=== PATIENT | female | born 1960 | race Caucasian/White ===

== ENCOUNTER → 2018-06-16 | Outpatient (CLI) | payer MEDICARE, OTHER ==
--- NOTE | 2018-06-16 13:10 | CT ---
EXAMINATION TYPE: CT abdomen pelvis wo/w con DATE OF EXAM: 06/16/2018 COMPARISON: 06/13/2010 HISTORY: Hematuria CT DLP: 1121.9 mGycm CONTRAST: CT scan of the abdomen and pelvis is performed without and with with Oral Contrast and without and wi th IV Contrast, patient injected with 100 mL of Isovue 300. FINDINGS: LUNG BASES-: No visible nodule. No infiltrate. LIVER/GB: No calcified gallstones. Mild fatty hepatic infiltration seen. No space occupying hepati c lesion. Biliary tree is of normal caliber. PANCREAS: No inflammation. No distinct mass. SPLEEN: No splenic enlargement. No lesion seen. ADRENALS: No nodule. No thickening. KIDNEYS/BLADDER: No hydronephrosis. 7 mm calculus lower pole left kidney without obstruction. No dis tinct renal mass. Urinary bladder grossly unremarkable. BOWEL: Normal appendix. Normal bowel caliber. No inflammation. GENITAL ORGANS: No gross abnormality. LYMPH NODES: No greater than 1cm abdominal or pelvic lymph nodes are appreciated. AORTA: No significant abnormality. OSSEOUS STRUCTURES: Severe degenerative change lumbar spine. OTHER: No significant additional abnorm ality is seen. IMPRESSION: 1. Nonobstructing left-sided nephrolithiasis.
== END | disposition home or self-care (01) ==
LOC: RADCTMAIN 09:51
PROVIDERS: ATTEND Family Medicine
DX: N20.0 Calculus of kidney (principal)
CPT/HCPCS: 74178; Q9967

== ENCOUNTER → 2018-07-08 | Outpatient (CLI) | payer MEDICARE, OTHER ==
--- NOTE | 2018-07-13 11:28 | MM ---
Reason for exam: screening (asymptomatic). Last mammogram was performed 3 years and 4 months ago. History: Patient is postmenopausal. Physical Findings: A clinical breast exam by your physician is recommended on an annual basis and results should be correlated with mammographic findings. MG 3D Screening Mammo W/Cad Bilateral CC and MLO view(s) were taken. Prior study comparison: March 02, 2015, right breast MG work up mamm w CAD RT. February 27, 2015, bilateral MG screening mammo w CAD. There are scattered fibroglandular densities. No suspicious abnormality. No significant changes when compared with prior studies. ASSESSMENT: Negative, BI-RAD 1 RECOMMENDATION: Routine screening mammogram of both breasts in 1 year.
== END | disposition home or self-care (01) ==
LOC: RADMAMWWP 11:16
PROVIDERS: ATTEND Family Medicine
DX: Z12.31 Encounter for screening mammogram for malignant neoplasm of breast (principal)
CPT/HCPCS: 77063; 77067

== ENCOUNTER 2018-11-19 16:44 | Emergency (ER) | payer MEDICARE, OTHER ==
[2018-11-19 17:47] VITALS: BP 122/86; PULSE 72; RESP 18; TEMP 98.6
[2018-11-19] MEDS ORDERED: SODIUM CHLORIDE 0.9% 1,000 ML IV STA ×2 (18:30→18:32)
[2018-11-19] MEDS ORDERED: ONDANSETRON 4 MG/2 ML VIAL IVP STA (18:30)
[2018-11-19] MEDS ORDERED: MORPHINE SULFATE 4 MG/ML SYRINGE IV STA (18:30)
--- NOTE | 2018-11-19 18:36 | ED ---
General Adult HPI - General Chief complaint: Urogenital Stated complaint: kidney stone, left side Time Seen by Provider: 11/19/18 18:24 Source: patient, RN notes reviewed Mode of arrival: ambulatory Limitations: no limitations - History of Present Illness Initial comments: patient 58-year-old female presented to the emergency room today with a chief complaint of left-sided flank pain. Patient does admit that she's been following up with family doctors told that she had a kidney stone. States that they have seen her move on x-ray. States that she was told approximately 7 mm. Patient states she's had increased pain today. Does admit does not attend pain located in the left flank. Patient does admit to nausea. Denies any other complaints. Patient denies any history of kidney stones in the past. Patient denies any recent fever, chills, shortness of breath, chest pain, numbness or tingling, dysuria or hematuria, constipation or diarrhea, headaches or visual changes, or any other complaints. - Related Data Home Medications Medication Instructions Recorded Confirmed Aspirin 325 mg PO QAM 04/28/14 11/19/18 DULoxetine HCL [Cymbalta] 60 mg PO BID 04/28/14 11/19/18 Multivitamins, Thera [Multivitamin] 1 tab PO DAILY 04/28/14 11/19/18 Nitroglycerin Sl Tabs [Nitrostat] 0.4 mg PO DIRECTED PRN 04/28/14 11/19/18 SUMAtriptan SUCCINATE [Imitrex] 6 mg SQ DAILY PRN 04/28/14 11/19/18 ARIPiprazole [Abilify] 20 mg PO QAM 03/15/16 11/19/18 clonazePAM [KlonoPIN] 0.5 mg PO TID PRN 03/15/16 11/19/18 clonazePAM [KlonoPIN] 2 mg PO HS 03/15/16 11/19/18 Albuterol Inhaler [Ventolin Hfa 2 puff INHALATION RT-Q6H PRN 11/19/18 11/19/18 Inhaler] Albuterol Nebulized [Ventolin 2.5 mg INHALATION RT-Q6H PRN 11/19/18 11/19/18 Nebulized] Aspirin/Acetaminophen/Caffeine 1 tab PO DAILY PRN 11/19/18 11/19/18 [Excedrin Extra Strength Caplet] Fluticasone/Vilanterol [Breo 1 puff INHALATION RT-DAILY 11/19/18 11/19/18 Ellipta 100-25 Mcg Inhaler] traZODone HCL [Desyrel] 200 mg PO HS 11/19/18 11/19/18 Previous Rx's Medication Instructions Recorded Ibuprofen [Motrin] 600 mg PO Q6HR PRN #40 day 11/19/18 Tamsulosin [Flomax] 0.4 mg PO DAILY #10 cap 11/19/18 Allergies Allergy/AdvReac Type Severity Reaction Status Date / Time amoxicillin [From Augmentin] AdvReac Nausea & Verified 11/19/18 19:35 Vomiting & Diarrhea clavulanic acid AdvReac Nausea & Verified 11/19/18 19:35 [From Augmentin] Vomiting & Diarrhea Review of Systems ROS Statement: Those systems with pertinent positive or pertinent negative responses have been documented in the HPI. ROS Other: All systems not noted in ROS Statement are negative. Past Medical History Past Medical History: Asthma, Chest Pain / Angina, Hyperlipidemia, Osteoarthritis (OA) Additional Past Medical History / Comment(s): HYPOTENSION, STATES LEAKY HEART VALVE AND A HOLE BETWEEN HEART CHAMBERS, History of Any Multi-Drug Resistant Organisms: None Reported Past Surgical History: Back Surgery, Orthopedic Surgery Additional Past Surgical History / Comment(s): CERVICAL FUSION. RIGHT SHOULDER ROTATOR CUFF SURGERY, PAIN CLINIC PROCEDURES. Past Anesthesia/Blood Transfusion Reactions: No Reported Reaction Additional Past Anesthesia/Blood Transfusion Reaction / Comment(s): UNKNOWN FAMILY HX. Past Psychological History: Anxiety, Depression, Panic Disorder Smoking Status: Former smoker Past Alcohol Use History: Occasional Past Drug Use History: None Reported - Past Family History Father Family Medical History: Cancer Additional Family Medical History / Comment(s): LUNG CANCER. Mother Family Medical History: Unable to Obtain General Exam - General Exam Comments Initial Comments: General: The patient is awake and alert, in no distress, and does not appear acutely ill. Eye: There is normal conjunctiva bilaterally. No signs of icterus. Ears, nose, mouth and throat: There are moist mucous membranes and no oral lesions. Neck: The neck is supple, there is no tenderness or JVD. Cardiovascular: There is a regular rate and rhythm. No murmur, rub or gallop is appreciated. Respiratory: Lungs are clear to auscultation, respirations are non-labored, breath sounds are equal. No wheezes, stridor, rales, or rhonchi. Gastrointestinal: abdomen soft on palpation. Patient does have mild tenderness left flank. No rebound, guarding Musculoskeletal: Normal ROM, no tenderness. Neurological: A&O x 3. CN II-XII intact, There are no obvious motor or sensory deficits. Coordination appears grossly intact. Speech is normal. Skin: Skin is warm and dry and no rashes or lesions are noted. Psychiatric: Cooperative, appropriate mood & affect, normal judgment. Limitations: no limitations Course Vital Signs 11/19/18 17:44 Temperature 98.6 F Pulse Rate 72 Respiratory 18 Rate Blood Pressure 122/86 O2 Sat by Pulse 99 Oximetry Medical Decision Making - Medical Decision Making patient's CT of the abdomen and pelvis reviewed. Patient's urinalysis does show moderate amount of blood. No sign of infection. Patient resting comfortable. Pain-free at this time. Will be discharged home on anti- inflammatories, Flomax. Advised follow family doctor in the next 2 days. Advised return for any other concerns. - Lab Data Result diagrams: 11/19/18 18:39 11/19/18 18:39 Lab Results 11/19/18 11/19/18 11/19/18 Range/Units 18:39 18:39 18:39 WBC 8.8 (3.8-10.6) k/uL RBC 4.72 (3.80-5.40) m/uL Hgb 14.9 (11.4-16.0) gm/dL Hct 44.2 (34.0-46.0) % MCV 93.8 (80.0-100.0) fL MCH 31.5 (25.0-35.0) pg MCHC 33.6 (31.0-37.0) g/dL RDW 12.8 (11.5-15.5) % Plt Count 317 (150-450) k/uL Neutrophils % 54 % Lymphocytes % 34 % Monocytes % 6 % Eosinophils % 2 % Basophils % 1 % Neutrophils # 4.8 (1.3-7.7) k/uL Lymphocytes # 3.0 (1.0-4.8) k/uL Monocytes # 0.5 (0-1.0) k/uL Eosinophils # 0.2 (0-0.7) k/uL Basophils # 0.1 (0-0.2) k/uL Sodium 139 (137-145) mmol/L Potassium 5.0 (3.5-5.1) mmol/L Chloride 104 (98-107) mmol/L Carbon Dioxide 29 (22-30) mmol/L Anion Gap 6 mmol/L BUN 23 H (7-17) mg/dL Creatinine 0.76 (0.52-1.04) mg/dL Est GFR (CKD-EPI)AfAm >90 (>60 ml/min/1.73 sqM) Est GFR (CKD-EPI)NonAf 87 (>60 ml/min/1.73 sqM) Glucose 88 (74-99) mg/dL Calcium 9.7 (8.4-10.2) mg/dL Total Bilirubin 0.5 (0.2-1.3) mg/dL AST 29 (14-36) U/L ALT 26 (9-52) U/L Alkaline Phosphatase 77 (38-126) U/L Total Protein 7.2 (6.3-8.2) g/dL Albumin 4.2 (3.5-5.0) g/dL Amylase 97 (30-110) U/L Lipase 227 (23-300) U/L Urine Color Yellow Urine Appearance Clear (Clear) Urine pH 6.0 (5.0-8.0) Ur Specific [place] 1.025 (1.001-1.035) Urine Protein 1+ H (Negative) Urine Glucose (UA) Negative (Negative) Urine Ketones Negative (Negative) Urine Blood Trace H (Negative) Urine Nitrite Negative (Negative) Urine Bilirubin Negative (Negative) Urine Urobilinogen <2.0 (<2.0) mg/dL Ur Leukocyte Esterase Moderate H (Negative) Urine RBC 110 H (0-5) /hpf Ur Squamous Epith Cells <1 (0-4) /hpf Hyaline Casts 1 (0-2) /lpf Urine Mucus Occasional H (None) /hpf Disposition Clinical Impression: Flank pain Disposition: HOME SELF-CARE Condition: Good Instructions: Kidney Stones (ED) Additional Instructions: Please use medication as discussed. Please follow-up with family doctor in the next 2 days of symptoms have not improved. Please return to emergency room if the symptoms increase or worsen or for any other concerns. Prescriptions: Ibuprofen [Motrin] 600 mg PO Q6HR PRN #40 day PRN Reason: Pain Tamsulosin [Flomax] 0.4 mg PO DAILY #10 cap Is patient prescribed a controlled substance at d/c from ED?: No Referrals: Vishnu Tesfaye DO [Primary Care Provider] - 1-2 days Time of Disposition: 19:48
[2018-11-19 19:03] LABS: Basophils # (A) 0.1 k/uL (0-0.2); Basophils % (A) 1 %; Eosinophils # (A) 0.2 k/uL (0-0.7); Eosinophils % (A) 2 %; HCT 44.2 % (34.0-46.0); HGB 14.9 gm/dL (11.4-16.0); Lymphocytes % (A) 34 %; MCH 31.5 pg (25.0-35.0); MCHC 33.6 g/dL (31.0-37.0); MCV 93.8 fL (80.0-100.0); Mean Platelet Volume 6.8; Monocytes # (A) 0.5 k/uL (0-1.0); Monocytes % (A) 6 %; Neutrophils # (A) 4.8 k/uL (1.3-7.7); Neutrophils % (A) 54 %; Platelet Count 317 k/uL (150-450); RBC 4.72 m/uL (3.80-5.40); RDW 12.8 % (11.5-15.5); WBC 8.8 k/uL (3.8-10.6)
[2018-11-19 19:07] LABS: Appearance,Urine Clear (Clear); Bilirubin,Urine Negative (Negative); Blood,Urine Trace (Negative); Color,Urine Yellow; Glucose,Urine (UA) Negative (Negative); Hyaline Casts,Urine 1 /lpf (0-2); Ketones,Urine Negative (Negative); Leukocyte Esterase,Urine Moderate (Negative); Mucus,Urine Occasional /hpf; Nitrite,Urine Negative (Negative); Protein,Urine 1+ (Negative); RBC,Urine 110 /hpf (0-5); Specific Gravity,Urine 1.025 (1.001-1.035); Squamous Epithelial Cell,Urine <1 /hpf (0-4); Urobilinogen,Urine <2.0 mg/dL (<2.0)
[2018-11-19 19:13] LABS: ALT 26 U/L (9-52); AST 29 U/L (14-36); Albumin 4.2 g/dL (3.5-5.0); Alkaline Phosphatase 77 U/L (38-126); Amylase 97 U/L (30-110); Anion Gap 6 mmol/L; Blood Urea Nitrogen 23 mg/dL (7-17); Calcium 9.7 mg/dL (8.4-10.2); Carbon Dioxide 29 mmol/L (22-30); Chloride 104 mmol/L (98-107); Glucose 88 mg/dL (74-99); Lipase 227 U/L (23-300); Sodium 139 mmol/L (137-145); Total Bilirubin 0.5 mg/dL (0.2-1.3); Total Protein 7.2 g/dL (6.3-8.2)
[2018-11-19] MEDS ORDERED: LORazepam 2 MG/ML INJ IV STA (19:19)
[2018-11-19] MEDS ORDERED: KETOROLAC 30 MG/ML 1 ML VIAL IVP STA (19:19)
[2018-11-19] MEDS ORDERED: FAMOTIDINE 20 MG/2 ML VIAL IV STA (19:19)
--- NOTE | 2018-11-19 19:30 | CT ---
EXAMINATION TYPE: CT abdomen pelvis wo con DATE OF EXAM: 11/19/2018 COMPARISON: 06/16/2018 HISTORY: Left side flank pain. CT DLP: 356.9 mGycm Automated exposure control for dose reduction was used. TECHNIQUE: Helical acquisition of images was performed from the lung bases through the pelvis. FINDINGS: Lung bases are clear. There is no pleural effusion. Heart size is normal. There is no pericardial eff usion. There is interposition of the hepatic flexure of the colon which is a normal variant. Liver spleen appear normal. Bile ducts are not dilated. Gallbladder appears normal. There is no evide nce of a pancreatic mass. Abdominal aorta is atheromatous. There is no adrenal mass. There is 1 cm ca lculus interpolar left kidney. There is no hydronephrosis. There is no free fluid in the pelvis. Bladder is empty. There are numerous phleboliths in the pelvis. There is no inguinal hernia. I see no retroperitoneal adenopathy. There is no ascites. There is no sign of a bowel obstruction. Th ere is no mesenteric edema. There is no evidence of free air. There are spondylotic changes in the courtney mbar spine. I see no bony destructive process. There is degenerative disc space narrowing and vacuum disc. Bony pelvis is intact. IMPRESSION: NONOBSTRUCTING LARGE LEFT RENAL CALCULUS UNCHANGED. NO EVIDENCE OF RENAL OBSTRUCTION. NO ADVERSE CHAPIN GE COMPARED TO OLD EXAM.
== END 2018-11-19 20:12 | disposition home or self-care (01) ==
LOC: EC 16:44
DX: R10.32 Left lower quadrant pain (principal); R11.0 Nausea; R82.90 Unspecified abnormal findings in urine; J45.909 Unspecified asthma, uncomplicated; F41.9 Anxiety disorder, unspecified; F32.9 Major depressive disorder, single episode, unspecified; Z87.891 Personal history of nicotine dependence; Z79.82 Long term (current) use of aspirin; Z79.51 Long term (current) use of inhaled steroids; Z79.899 Other long term (current) drug therapy; Z88.0 Allergy status to penicillin
CPT/HCPCS: 36415; 80053; 82150; 83690; 85025; 81001; 87086; 74176; 99284; 96374; 96375; 96361; J2270; J2405

== ENCOUNTER → 2019-03-22 | Outpatient (CLI) | payer MEDICARE, OTHER ==
--- NOTE | 2019-03-22 13:19 | XR ---
EXAMINATION TYPE: XR KUB DATE OF EXAM: 03/22/2019 COMPARISON: NONE HISTORY: Pain TECHNIQUE: One view abdominal series FINDINGS: The osseous structures are intact. The bowel gas pattern is nonspecific. Scoliosis and severe degene rative disc disease noted. There is a calcification the left upper quadrant measuring 7 mm likely the basis of a renal calculus. No suspicious calculi overlying the right kidney a low there is significa nt bowel content overlying the region. Calcifications the pelvis are nonspecific but likely vascular. Arthropathy of the hip joints. IMPRESSION: 1. 7 mm calcification within the left kidney likely within the renal pelvis may have migrated central ly since the previous CT scan of 11/19/2018 where it appear to be within a lower pole calyx.
== END | disposition home or self-care (01) ==
LOC: RADXRMAIN 12:13
PROVIDERS: ATTEND Urology
DX: N28.89 Other specified disorders of kidney and ureter (principal)
CPT/HCPCS: 74018

== ENCOUNTER 2019-04-15 18:05 | Observation (INO) | payer MEDICARE, OTHER ==
[2019-04-15] MEDS ORDERED: ONDANSETRON 4 MG/2 ML VIAL IVP STA (20:00)
[2019-04-15] MEDS ORDERED: SODIUM CHLORIDE 0.9% 1,000 ML IV STA ×3 (20:00→22:48)
--- NOTE | 2019-04-15 20:01 | ED ---
Abdominal Pain HPI - General Chief Complaint: Abdominal Pain Stated Complaint: kidney problems/vomiting Time Seen by Provider: 04/15/19 20:00 Source: patient, RN notes reviewed, old records reviewed Mode of arrival: ambulatory Limitations: no limitations - History of Present Illness Initial Comments: This is a 5-year-old female the ER for evaluation. Patient is today for evaluation of abdominal pain epigastric abdominal pain with nausea no vomiting. No fevers. No diarrhea. No history of surgical illness. No prior history of pancreatitis, no prior history of kidney stones. No prior history of similar pain MD Complaint: abdominal pain -: days(s) Location: diffuse, periumbilical, epigastric Radiation: epigastric Migration to: bilateral flank Severity: moderate Severity scale (1-10): 5 Quality: stabbing, aching Consistency: intermittent Improves With: nothing Associated Symptoms: nausea, vomiting - Related Data Home Medications Medication Instructions Recorded Confirmed Nitroglycerin Sl Tabs [Nitrostat] 0.4 mg PO DIRECTED PRN 04/28/14 04/15/19 clonazePAM [KlonoPIN] 2 mg PO HS 03/15/16 04/15/19 Albuterol Inhaler [Ventolin Hfa 2 puff INHALATION RT-Q6H PRN 11/19/18 04/15/19 Inhaler] Fluticasone/Vilanterol [Breo 1 puff INHALATION RT-DAILY 11/19/18 04/15/19 Ellipta 100-25 Mcg Inhaler] DULoxetine HCL [Cymbalta] 60 mg PO BID 04/15/19 04/15/19 clonazePAM [KlonoPIN] 1 mg PO DAILY 04/15/19 04/15/19 traZODone HCL 150 mg PO HS 04/15/19 04/15/19 SUMAtriptan SUCCINATE [Imitrex] 6 mg SQ Q8HR PRN 04/16/19 04/16/19 Previous Rx's Medication Instructions Recorded Pantoprazole Sodium [Protonix] 20 mg PO BID #30 tablet. 04/16/19 Polyethylene Glycol 3350 [Miralax] 17 gm PO DAILY PRN #15 packet 04/16/19 Allergies Allergy/AdvReac Type Severity Reaction Status Date / Time amoxicillin [From Augmentin] AdvReac Nausea & Verified 04/15/19 20:36 Vomiting & Diarrhea clavulanic acid AdvReac Nausea & Verified 04/15/19 20:36 [From Augmentin] Vomiting & Diarrhea Review of Systems ROS Statement: Those systems with pertinent positive or pertinent negative responses have been documented in the HPI. ROS Other: All systems not noted in ROS Statement are negative. 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 ridney stones History of Any Multi-Drug Resistant Organisms: None Reported Past Surgical History: Back Surgery, Orthopedic Surgery Additional Past Surgical History / Comment(s): CERVICAL FUSION. RIGHT SHOULDER ROTATOR CUFF SURGERY, PAIN CLINIC PROCEDURES. Past Anesthesia/Blood Transfusion Reactions: No Reported Reaction Additional Past Anesthesia/Blood Transfusion Reaction / Comment(s): UNKNOWN FAMILY HX. Past Psychological History: Anxiety, Depression, Panic Disorder Smoking Status: Former smoker Past Alcohol Use History: Occasional Past Drug Use History: None Reported - Past Family History Father Family Medical History: Cancer Additional Family Medical History / Comment(s): LUNG CANCER. Mother Family Medical History: Unable to Obtain General Exam Limitations: no limitations General appearance: alert, in no apparent distress Head exam: Present: atraumatic, normocephalic, normal inspection Eye exam: Present: normal appearance, PERRL, EOMI. Absent: scleral icterus, conjunctival injection, periorbital swelling ENT exam: Present: normal exam, mucous membranes moist Neck exam: Present: normal inspection. Absent: tenderness, meningismus, lymphadenopathy Respiratory exam: Present: normal lung sounds bilaterally. Absent: respiratory distress, wheezes, rales, rhonchi, stridor Cardiovascular Exam: Present: regular rate, normal rhythm, normal heart sounds. Absent: systolic murmur, diastolic murmur, rubs, gallop, clicks GI/Abdominal exam: Present: soft, tenderness (Epigastric), normal bowel sounds. Absent: distended, guarding, rebound, rigid Extremities exam: Present: normal inspection, full ROM, normal capillary refill. Absent: tenderness, pedal edema, joint swelling, calf tenderness Back exam: Present: normal inspection Neurological exam: Present: alert, oriented X3, CN II-XII intact Psychiatric exam: Present: normal affect, normal mood Skin exam: Present: warm, dry, intact, normal color. Absent: rash Course Vital Signs 04/15/19 04/15/19 04/15/19 18:15 20:19 20:20 Temperature 97.8 F Pulse Rate 78 Pulse Rate [ Pulse Oximetery ] Respiratory 20 Rate Blood Pressure 107/73 114/74 Blood Pressure [Right Arm] O2 Sat by Pulse 96 97 97 Oximetry 04/15/19 04/15/19 04/15/19 20:30 20:40 20:50 Temperature Pulse Rate Pulse Rate [ Pulse Oximetery ] Respiratory Rate Blood Pressure 114/74 114/74 114/74 Blood Pressure [Right Arm] O2 Sat by Pulse 95 88 L 96 Oximetry 04/15/19 04/15/19 04/15/19 21:00 21:10 21:20 Temperature Pulse Rate Pulse Rate [ Pulse Oximetery ] Respiratory Rate Blood Pressure 114/74 114/74 114/74 Blood Pressure [Right Arm] O2 Sat by Pulse 97 96 Oximetry 04/15/19 04/15/19 04/15/19 21:30 21:40 21:50 Temperature Pulse Rate Pulse Rate [ Pulse Oximetery ] Respiratory Rate Blood Pressure 114/74 114/74 114/74 Blood Pressure [Right Arm] O2 Sat by Pulse 95 95 96 Oximetry 04/15/19 04/15/19 04/16/19 23:07 23:10 00:00 Temperature 98.0 F 97.6 F Pulse Rate 67 Pulse Rate [ 68 Pulse Oximetery ] Respiratory 18 18 18 Rate Blood Pressure 125/82 Blood Pressure 111/73 [Right Arm] O2 Sat by Pulse 95 95 Oximetry Medical Decision Making - Medical Decision Making 59 female the ER for evaluation of abdominal pain, patient's found to have pancreatitis and dehydration. Will not for rehydration pain and symptom control. - Lab Data Result diagrams: 04/15/19 20:00 04/15/19 20:00 Lab Results 04/15/19 04/15/19 04/15/19 Range/Units 20:00 20:00 20:00 WBC 6.6 (3.8-10.6) k/uL RBC 5.08 (3.80-5.40) m/uL Hgb 15.5 (11.4-16.0) gm/dL Hct 47.7 H (34.0-46.0) % MCV 93.9 (80.0-100.0) fL MCH 30.5 (25.0-35.0) pg MCHC 32.5 (31.0-37.0) g/dL RDW 14.4 (11.5-15.5) % Plt Count 371 (150-450) k/uL Neutrophils % 45 % Lymphocytes % 39 % Monocytes % 9 % Eosinophils % 3 % Basophils % 1 % Neutrophils # 3.0 (1.3-7.7) k/uL Lymphocytes # 2.6 (1.0-4.8) k/uL Monocytes # 0.6 (0-1.0) k/uL Eosinophils # 0.2 (0-0.7) k/uL Basophils # 0.1 (0-0.2) k/uL Sodium 137 (137-145) mmol/L Potassium 4.0 (3.5-5.1) mmol/L Chloride 101 (98-107) mmol/L Carbon Dioxide 29 (22-30) mmol/L Anion Gap 7 mmol/L BUN 11 (7-17) mg/dL Creatinine 0.68 (0.52-1.04) mg/dL Est GFR (CKD-EPI)AfAm >90 (>60 ml/min/1.73 sqM) Est GFR (CKD-EPI)NonAf >90 (>60 ml/min/1.73 sqM) Glucose 59 L (74-99) mg/dL Plasma Lactic Acid [place] 1.2 (0.7-2.0) mmol/L Calcium 10.0 (8.4-10.2) mg/dL Total Bilirubin 0.4 (0.2-1.3) mg/dL AST 34 (14-36) U/L ALT 9 (9-52) U/L Alkaline Phosphatase 77 (38-126) U/L Total Protein 8.2 (6.3-8.2) g/dL Albumin 4.7 (3.5-5.0) g/dL Amylase 123 H (30-110) U/L Lipase 467 H (23-300) U/L Urine Color Urine Appearance (Clear) Urine pH (5.0-8.0) Ur Specific [place] (1.001-1.035) Urine Protein (Negative) Urine Glucose (UA) (Negative) Urine Ketones (Negative) Urine Blood (Negative) Urine Nitrite (Negative) Urine Bilirubin (Negative) Urine Urobilinogen (<2.0) mg/dL Ur Leukocyte Esterase (Negative) Urine RBC (0-5) /hpf Urine WBC (0-5) /hpf Amorphous Sediment (None) /hpf Urine Mucus (None) /hpf 04/15/19 Range/Units 20:00 WBC (3.8-10.6) k/uL RBC (3.80-5.40) m/uL Hgb (11.4-16.0) gm/dL Hct (34.0-46.0) % MCV (80.0-100.0) fL MCH (25.0-35.0) pg MCHC (31.0-37.0) g/dL RDW (11.5-15.5) % Plt Count (150-450) k/uL Neutrophils % % Lymphocytes % % Monocytes % % Eosinophils % % Basophils % % Neutrophils # (1.3-7.7) k/uL Lymphocytes # (1.0-4.8) k/uL Monocytes # (0-1.0) k/uL Eosinophils # (0-0.7) k/uL Basophils # (0-0.2) k/uL Sodium (137-145) mmol/L Potassium (3.5-5.1) mmol/L Chloride (98-107) mmol/L Carbon Dioxide (22-30) mmol/L Anion Gap mmol/L BUN (7-17) mg/dL Creatinine (0.52-1.04) mg/dL Est GFR (CKD-EPI)AfAm (>60 ml/min/1.73 sqM) Est GFR (CKD-EPI)NonAf (>60 ml/min/1.73 sqM) Glucose (74-99) mg/dL Plasma Lactic Acid Thomas (0.7-2.0) mmol/L Calcium (8.4-10.2) mg/dL Total Bilirubin (0.2-1.3) mg/dL AST (14-36) U/L ALT (9-52) U/L Alkaline Phosphatase (38-126) U/L Total Protein (6.3-8.2) g/dL Albumin (3.5-5.0) g/dL Amylase (30-110) U/L Lipase (23-300) U/L Urine Color Yellow Urine Appearance Cloudy H (Clear) Urine pH 7.5 (5.0-8.0) Ur Specific [place] 1.023 (1.001-1.035) Urine Protein Trace H (Negative) Urine Glucose (UA) Negative (Negative) Urine Ketones Negative (Negative) Urine Blood Negative (Negative) Urine Nitrite Negative (Negative) Urine Bilirubin Negative (Negative) Urine Urobilinogen 3.0 (<2.0) mg/dL Ur Leukocyte Esterase Negative (Negative) Urine RBC 10 H (0-5) /hpf Urine WBC 3 (0-5) /hpf Amorphous Sediment Rare H (None) /hpf Urine Mucus Rare H (None) /hpf - Radiology Data Radiology results: report reviewed (CT head and pelvis is negative for acute disease), image reviewed Disposition Clinical Impression: Abdominal pain, Pancreatitis Disposition: ADMITTED IP TO THIS HOSP Condition: Fair Is patient prescribed a controlled substance at d/c from ED?: No
[2019-04-15 20:33] LABS: Basophils # (A) 0.1 k/uL (0-0.2); Basophils % (A) 1 %; Eosinophils # (A) 0.2 k/uL (0-0.7); Eosinophils % (A) 3 %; HCT 47.7 % (34.0-46.0); HGB 15.5 gm/dL (11.4-16.0); Lymphocytes # (A) 2.6 k/uL (1.0-4.8); Lymphocytes % (A) 39 %; MCH 30.5 pg (25.0-35.0); MCHC 32.5 g/dL (31.0-37.0); MCV 93.9 fL (80.0-100.0); Mean Platelet Volume 7.3; Monocytes # (A) 0.6 k/uL (0-1.0); Monocytes % (A) 9 %; Neutrophils % (A) 45 %; Platelet Count 371 k/uL (150-450); RBC 5.08 m/uL (3.80-5.40); RDW 14.4 % (11.5-15.5); WBC 6.6 k/uL (3.8-10.6)
[2019-04-15 20:41] LABS: Amorphous Sediment,Urine Rare /hpf; Appearance,Urine Cloudy (Clear); Bilirubin,Urine Negative (Negative); Blood,Urine Negative (Negative); Color,Urine Yellow; Glucose,Urine (UA) Negative (Negative); Ketones,Urine Negative (Negative); Leukocyte Esterase,Urine Negative (Negative); Mucus,Urine Rare /hpf; Nitrite,Urine Negative (Negative); PH, Urine 7.5 (5.0-8.0); Protein,Urine Trace (Negative); RBC,Urine 10 /hpf (0-5); Specific Gravity,Urine 1.023 (1.001-1.035); WBC,Urine 3 /hpf (0-5)
[2019-04-15 20:50] LABS: ALT 9 U/L (9-52); AST 34 U/L (14-36); Albumin 4.7 g/dL (3.5-5.0); Alkaline Phosphatase 77 U/L (38-126); Amylase 123 U/L (30-110); Anion Gap 7 mmol/L; Blood Urea Nitrogen 11 mg/dL (7-17); Carbon Dioxide 29 mmol/L (22-30); Chloride 101 mmol/L (98-107); Glucose 59 mg/dL (74-99); Lipase 467 U/L (23-300); Sodium 137 mmol/L (137-145); Total Bilirubin 0.4 mg/dL (0.2-1.3); Total Protein 8.2 g/dL (6.3-8.2)
--- NOTE | 2019-04-15 22:05 | CT ---
EXAMINATION TYPE: CT abdomen pelvis w con DATE OF EXAM: 04/15/2019 COMPARISON: 11/19/2018 HISTORY: Left side flank pain and vomiting. CT DLP: 536.8 mGycm Automated exposure control for dose reduction was used. TECHNIQUE: Helical acquisition of images was performed from the lung bases through the pelvis. CONTRAST: Performed without Oral Contrast and with IV Contrast, patient injected with 100ml mL of Iso [place] 300. FINDINGS: The patient is thin and there is crowding of structures throughout the abdomen and pelvis, along with unopacified small and large bowel loops. This makes for difficult visualization. Nonethele ss, the following observations are made: LUNG BASES: No acute process. A moderate cardiomegaly noted. LIVER/GB: No significant abnormality is appreciated. PANCREAS: No significant abnormality is seen. SPLEEN: No significant abnormality is seen. ADRENALS: No significant abnormality is seen. KIDNEYS: No acute findings. The 1 cm left renal pelvis calcification is redemonstrated. PERITONEAL CAVITY: No free air is visualized. No peritoneal fluid. ABDOMINAL ADENOPATHY: None. REPRODUCTIVE ORGANS: No significant abnormality is seen URINARY BLADDER: No significant abnormality is seen. PELVIC ADENOPATHY: None visualized. OSSEOUS STRUCTURES: No acute findings. BOWEL: Stomach and duodenum are collapsed. There is no small bowel obstruction. However, a large vol ume of stool seen throughout the colon which is prominently redundant. There is colonic stool volume is seen throughout the colon and including the rectosigmoid. OTHER: No acute vascular findings. IMPRESSION: CONSTIPATION.
[2019-04-15] MEDS ORDERED: MORPHINE SULFATE 4 MG/ML SYRINGE IVP PRN (22:48)
[2019-04-15] MEDS ORDERED: MORPHINE SULFATE 4 MG/ML SYRINGE IVP STA (22:48)
[2019-04-15] MEDS ORDERED: ONDANSETRON 4 MG/2 ML VIAL IVP PRN (22:48)
[2019-04-16 00:14] VITALS: BMI 19.6
[2019-04-16] MEDS ORDERED: traZODone HCL 50 MG TAB PO SCH (00:45)
[2019-04-16] MEDS: DULoxetine HCL 60 MG CAPSULE.DR PO SCH ×2 (02:24→11:53)
[2019-04-16 07:44] VITALS: BP 118/76; PULSE 67; RESP 16; TEMP 98.1
[2019-04-16] MEDS ORDERED: PANTOPRAZOLE 40 MG/10 ML VIAL IVP SCH (09:00)
[2019-04-16] MEDS ORDERED: ALBUTEROL NEBULIZED 2.5 MG/3 ML INHALATION PRN (11:58)
[2019-04-16] MEDS ORDERED: NITROGLYCERIN SL TABS 0.4 MG TAB SUBLINGUAL PRN (11:58)
[2019-04-16] MEDS ORDERED: SENNOSIDES 8.6 MG TAB PO PRN (12:00)
[2019-04-16] MEDS ORDERED: POLYETHYLENE GLYCOL 3350 17 GM POWD.PACK PO PRN (12:00)
--- NOTE | 2019-04-16 14:44 | P.HPIM ---
History of Present Illness 5-year-old female came in with left lower quadrant abdominal pain which is a moderate in severity crampy in nature. Patient is found to have constipation. Patient has mildly elevated the lipase because of which he does believe patient has back hepatitis although patient does not have any symptoms consistent with pancreatitis and lipase is not high enough to say pancreatitis and do not believe patient has pancreatitis. Patient is feeling better today although did not move her bowel patient does have good bowel sounds patient was started on as needed MiraLAX and will be discharged home. Patient's abdominal pain significant improved. Review of Systems REVIEW OF SYSTEMS: CONSTITUTIONAL: No fever, no malaise, no fatigue. HEENT: No recent visual problems or hearing problems. Denied any sore throat. CARDIOVASCULAR: No chest pain, orthopnea, PND, no palpitations, no syncope. PULMONARY: No shortness of breath, no cough, no hemoptysis. GASTROINTESTINAL: No diarrhea, no nausea, no vomiting. NEUROLOGICAL: No headaches, no weakness, no numbness. HEMATOLOGICAL: Denies any bleeding or petechiae. GENITOURINARY: Denies any burning micturition, frequency, or urgency. MUSCULOSKELETAL/RHEUMATOLOGICAL: Denies any joint pain, swelling, or any muscle pain. ENDOCRINE: Denies any polyuria or polydipsia. The rest of the 14-point review of systems is negative. 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 KIdney stones History of Any Multi-Drug Resistant Organisms: None Reported Past Surgical History: Back Surgery, Orthopedic Surgery Additional Past Surgical History / Comment(s): CERVICAL FUSION. RIGHT SHOULDER ROTATOR CUFF SURGERY, PAIN CLINIC PROCEDURES. Past Anesthesia/Blood Transfusion Reactions: No Reported Reaction Additional Past Anesthesia/Blood Transfusion Reaction / Comment(s): UNKNOWN FAMILY HX. Past Psychological History: Anxiety, Depression, Panic Disorder Additional Psychological History / Comment(s): STATES 3 MONTHS AGO. Smoking Status: Current every day smoker Past Alcohol Use History: Occasional Additional Past Alcohol Use History / Comment(s): STARTED SMOKING AT AGE 40 SMOKED 2PPD DOWN TO 1PPD Past Drug Use History: None Reported - Past Family History Father Family Medical History: Cancer Additional Family Medical History / Comment(s): LUNG CANCER. Mother Family Medical History: Unable to Obtain Medications and Allergies Home Medications Medication Instructions Recorded Confirmed Type Nitroglycerin Sl Tabs [Nitrostat] 0.4 mg PO DIRECTED PRN 04/28/14 04/15/19 History clonazePAM [KlonoPIN] 2 mg PO HS 03/15/16 04/15/19 History Albuterol Inhaler [Ventolin Hfa 2 puff INHALATION RT-Q6H PRN 11/19/18 04/15/19 History Inhaler] Fluticasone/Vilanterol [Breo 1 puff INHALATION RT-DAILY 11/19/18 04/15/19 History Ellipta 100-25 Mcg Inhaler] DULoxetine HCL [Cymbalta] 60 mg PO BID 04/15/19 04/15/19 History clonazePAM [KlonoPIN] 1 mg PO DAILY 04/15/19 04/15/19 History traZODone HCL 150 mg PO HS 04/15/19 04/15/19 History Pantoprazole Sodium [Protonix] 20 mg PO BID #30 tablet. 04/16/19 Rx Polyethylene Glycol 3350 [Miralax] 17 gm PO DAILY PRN #15 packet 04/16/19 Rx SUMAtriptan SUCCINATE [Imitrex] 6 mg SQ Q8HR PRN 04/16/19 04/16/19 History Allergies Allergy/AdvReac Type Severity Reaction Status Date / Time amoxicillin [From Augmentin] AdvReac Nausea & Verified 04/15/19 20:36 Vomiting & Diarrhea clavulanic acid AdvReac Nausea & Verified 04/15/19 20:36 [From Augmentin] Vomiting & Diarrhea Physical Exam Vitals: Vital Signs Temp Pulse Pulse Resp BP BP Pulse Ox 04/16/19 07:43 98.1 F 67 16 118/76 94 L 04/16/19 00:00 97.6 F 68 18 111/73 95 04/15/19 23:10 98.0 F 67 18 125/82 95 04/15/19 23:07 18 04/15/19 21:50 114/74 96 04/15/19 21:40 114/74 95 04/15/19 21:30 114/74 95 04/15/19 21:20 114/74 96 04/15/19 21:10 114/74 04/15/19 21:00 114/74 97 04/15/19 20:50 114/74 96 04/15/19 20:40 114/74 88 L 04/15/19 20:30 114/74 95 04/15/19 20:20 114/74 97 04/15/19 20:19 97 04/15/19 18:15 97.8 F 78 20 107/73 96 Intake and Output 04/15/19 04/16/19 04/16/19 22:59 06:59 14:59 Intake Total 1000 298 Balance 1000 298 Intake: Amount of Fluid Infused ( 1000 ml) Oral 298 Other: # Voids 1 Weight 56.699 kg PHYSICAL EXAMINATION: GENERAL: The patient is alert and oriented x3, not in any acute distress. Well developed, well nourished. HEENT: Pupils are round and equally reacting to light. EOMI. No scleral icterus. No conjunctival pallor. Normocephalic, atraumatic. No pharyngeal erythema. No thyromegaly. CARDIOVASCULAR: S1 and S2 present. No murmurs, rubs, or gallops. PULMONARY: Chest is clear to auscultation, no wheezing or crackles. ABDOMEN: Soft, nontender, nondistended, normoactive bowel sounds. No palpable organomegaly. MUSCULOSKELETAL: No joint swelling or deformity. EXTREMITIES: No cyanosis, clubbing, or pedal edema. NEUROLOGICAL: Gross neurological examination did not reveal any focal deficits. SKIN: No rashes. Results CBC & Chem 7: 04/15/19 20:00 04/15/19 20:00 Labs: Abnormal Lab Results - Last 24 Hours (Table) 04/15/19 04/15/19 04/15/19 Range/Units 20:00 20:00 20:00 Hct 47.7 H (34.0-46.0) % Glucose 59 L (74-99) mg/dL Amylase 123 H (30-110) U/L Lipase 467 H (23-300) U/L Urine Appearance Cloudy H (Clear) Urine Protein Trace H (Negative) Urine RBC 10 H (0-5) /hpf Amorphous Sediment Rare H (None) /hpf Urine Mucus Rare H (None) /hpf Microbiology - Last 24 Hours (Table) 04/15/19 20:00 Urine Culture - Preliminary Urine,Voided Thrombosis Risk Factor Assmnt - Choose All That Apply Any of the Below Risk Factors Present?: Yes Each Factor Represents 1 point: Age 41-60 years Other Risk Factors: No Other congenital or acquired thrombophilia - If yes, enter type in comment: No Thrombosis Risk Factor Assessment Total Risk Factor Score: 1 Thrombosis Risk Factor Assessment Level: Low Risk Assessment and Plan Plan: -Abdominal pain: Secondary to constipation and do not believe patient has back hepatitis patient will be discharged today. Patient is feeling better today. -COPD without any acute exacerbation -hyperlipidemia -Depression -" Continued nicotine use: Counseling was provided
--- NOTE | 2019-04-16 14:45 | P.DS ---
Providers Date of admission: 04/15/19 22:48 Attending physician: Jim Douglas Primary care physician: [facility] Course: Please refer to my HPI Patient Condition at Discharge: Fair Plan - Discharge Summary New Discharge Prescriptions: New Pantoprazole Sodium [Protonix] 20 mg PO BID #30 tablet. Polyethylene Glycol 3350 [Miralax] 17 gm PO DAILY PRN #15 packet PRN Reason: Constipation Continue Nitroglycerin Sl Tabs [Nitrostat] 0.4 mg PO DIRECTED PRN PRN Reason: Angina clonazePAM [KlonoPIN] 2 mg PO HS Fluticasone/Vilanterol [Breo Ellipta 100-25 Mcg Inhaler] 1 puff INHALATION RT-DAILY Albuterol Inhaler [Ventolin Hfa Inhaler] 2 puff INHALATION RT-Q6H PRN PRN Reason: Shortness Of Breath DULoxetine HCL [Cymbalta] 60 mg PO BID clonazePAM [KlonoPIN] 1 mg PO DAILY traZODone HCL 150 mg PO HS SUMAtriptan SUCCINATE [Imitrex] 6 mg SQ Q8HR PRN PRN Reason: Headache Discontinued RABEprazole SODIUM [Aciphex] 20 mg PO DAILY Discharge Medication List Nitroglycerin Sl Tabs [Nitrostat] 0.4 mg PO DIRECTED PRN 04/28/14 [History] clonazePAM [KlonoPIN] 2 mg PO HS 03/15/16 [History] Albuterol Inhaler [Ventolin Hfa Inhaler] 2 puff INHALATION RT-Q6H PRN 11/19/18 [History] Fluticasone/Vilanterol [Breo Ellipta 100-25 Mcg Inhaler] 1 puff INHALATION RT- DAILY 11/19/18 [History] DULoxetine HCL [Cymbalta] 60 mg PO BID 04/15/19 [History] clonazePAM [KlonoPIN] 1 mg PO DAILY 04/15/19 [History] traZODone HCL 150 mg PO HS 04/15/19 [History] Pantoprazole Sodium [Protonix] 20 mg PO BID #30 tablet. 04/16/19 [Rx] Polyethylene Glycol 3350 [Miralax] 17 gm PO DAILY PRN #15 packet 04/16/19 [Rx] SUMAtriptan SUCCINATE [Imitrex] 6 mg SQ Q8HR PRN 04/16/19 [History] Follow up Appointment(s)/Referral(s): Vishnu Tesfaye DO [Primary Care Provider] - 3 Days Discharge Disposition: HOME SELF-CARE
[2019-04-16] MEDS ORDERED: SUMAtriptan SUCCINATE 6 MG/0.5 ML VIAL SQ PRN (21:00)
[2019-04-17] MEDS ORDERED: SYMBICORT 80-4.5 MCG INHALER INHALATION SCH (08:00)
== END 2019-04-16 15:44 | disposition home or self-care (01) ==
LOC: EC 18:05 → 1SOBS 22:48
PROVIDERS: ADMIT Hospitalist; ATTEND Hospitalist
DX: K59.00 Constipation, unspecified (principal); R74.8 Abnormal levels of other serum enzymes; E86.0 Dehydration; J44.9 Chronic obstructive pulmonary disease, unspecified; E78.5 Hyperlipidemia, unspecified; F32.9 Major depressive disorder, single episode, unspecified; M19.90 Unspecified osteoarthritis, unspecified site; I38 Endocarditis, valve unspecified; F17.210 Nicotine dependence, cigarettes, uncomplicated; F41.0 Panic disorder [episodic paroxysmal anxiety]; F41.9 Anxiety disorder, unspecified; Z79.51 Long term (current) use of inhaled steroids; Z79.899 Other long term (current) drug therapy; Z88.0 Allergy status to penicillin; Z88.1 Allergy status to other antibiotic agents; Z98.1 Arthrodesis status; Z80.1 Family history of malignant neoplasm of trachea, bronchus and lung
CPT/HCPCS: 96361 ×2; 96375 ×2; 96376; 96374; 99285; 36415; 80053; 82150; 83605; 83690; 85025; 81001; 87086; 74177; G0378 ×2; J2270 ×2; J2405; C9113; Q9967

== ENCOUNTER 2019-07-08 17:20 | Emergency (ER) | payer MEDICARE, OTHER ==
[2019-07-08] MEDS ORDERED: SODIUM CHLORIDE 0.9% 1,000 ML IV STA ×3 (17:33→18:54)
[2019-07-08] MEDS ORDERED: MORPHINE SULFATE 4 MG/ML SYRINGE IV STA (17:33)
[2019-07-08] MEDS ORDERED: KETOROLAC 30 MG/ML 1 ML VIAL IVP STA (17:38)
[2019-07-08] MEDS ORDERED: ONDANSETRON 4 MG/2 ML VIAL IVP STA (17:38)
--- NOTE | 2019-07-08 17:42 | ED ---
Abdominal Pain HPI - General Chief Complaint: Abdominal Pain Stated Complaint: Kidney pain Time Seen by Provider: 07/08/19 17:30 Source: patient, RN notes reviewed, old records reviewed Mode of arrival: ambulatory Limitations: no limitations - History of Present Illness Initial Comments: This is a 5-year-old female the ER for evaluation, she presents today for evaluation regards to flank pain left-sided severe flank pain rating to left groin prescription urticaria. Denies abdominal tenderness. She does have history of kidney stones states is been going on for 2 or 3 days nausea and is been significant today with nonstop. Presents because of the severe pain. Patient's unable keep anything down severe feels very dehydrated no urine output today, she did not have blood and urine are denies blood in the urine yesterday. No fevers. MD Complaint: abdominal pain, flank pain (Left-sided) -: days(s) (3) Location: LLQ, suprapubic Migration to: suprapubic, L flank Severity: severe Severity scale (1-10): 9 Quality: stabbing Consistency: constant Improves With: nothing Worsens With: nothing Associated Symptoms: nausea, vomiting - Related Data Home Medications Medication Instructions Recorded Confirmed Nitroglycerin Sl Tabs [Nitrostat] 0.4 mg PO DIRECTED PRN 04/28/14 04/15/19 clonazePAM [KlonoPIN] 2 mg PO HS 03/15/16 04/15/19 Albuterol Inhaler [Ventolin Hfa 2 puff INHALATION RT-Q6H PRN 11/19/18 04/15/19 Inhaler] Fluticasone/Vilanterol [Breo 1 puff INHALATION RT-DAILY 11/19/18 04/15/19 Ellipta 100-25 Mcg Inhaler] DULoxetine HCL [Cymbalta] 60 mg PO BID 04/15/19 04/15/19 clonazePAM [KlonoPIN] 1 mg PO DAILY 04/15/19 04/15/19 traZODone HCL 150 mg PO HS 04/15/19 04/15/19 SUMAtriptan SUCCINATE [Imitrex] 6 mg SQ Q8HR PRN 04/16/19 04/16/19 Previous Rx's Medication Instructions Recorded Pantoprazole Sodium [Protonix] 20 mg PO BID #30 tablet. 04/16/19 Polyethylene Glycol 3350 [Miralax] 17 gm PO DAILY PRN #15 packet 04/16/19 Allergies Allergy/AdvReac Type Severity Reaction Status Date / Time amoxicillin [From Augmentin] AdvReac Nausea & Verified 07/08/19 17:47 Vomiting & Diarrhea clavulanic acid AdvReac Nausea & Verified 07/08/19 17:47 [From Augmentin] Vomiting & Diarrhea Review of Systems ROS Statement: Those systems with pertinent positive or pertinent negative responses have been documented in the HPI. ROS Other: All systems not noted in ROS Statement are negative. 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 ridney stones History of Any Multi-Drug Resistant Organisms: None Reported Past Surgical History: Back Surgery, Orthopedic Surgery Additional Past Surgical History / Comment(s): CERVICAL FUSION. RIGHT SHOULDER ROTATOR CUFF SURGERY, PAIN CLINIC PROCEDURES. Past Anesthesia/Blood Transfusion Reactions: No Reported Reaction Additional Past Anesthesia/Blood Transfusion Reaction / Comment(s): UNKNOWN FAMILY HX. Past Psychological History: Anxiety, Depression, Panic Disorder Smoking Status: Former smoker Past Alcohol Use History: Occasional Past Drug Use History: None Reported - Past Family History Father Family Medical History: Cancer Additional Family Medical History / Comment(s): LUNG CANCER. Mother Family Medical History: Unable to Obtain General Exam Limitations: no limitations General appearance: alert, in no apparent distress Head exam: Present: atraumatic, normocephalic, normal inspection Eye exam: Present: normal appearance, PERRL, EOMI. Absent: scleral icterus, conjunctival injection, periorbital swelling ENT exam: Present: normal exam, mucous membranes moist Neck exam: Present: normal inspection. Absent: tenderness, meningismus, lymphadenopathy Respiratory exam: Present: normal lung sounds bilaterally. Absent: respiratory distress, wheezes, rales, rhonchi, stridor Cardiovascular Exam: Present: regular rate, normal rhythm, normal heart sounds. Absent: systolic murmur, diastolic murmur, rubs, gallop, clicks GI/Abdominal exam: Present: soft, normal bowel sounds. Absent: distended, tenderness, guarding, rebound, rigid Extremities exam: Present: normal inspection, full ROM, normal capillary refill. Absent: tenderness, pedal edema, joint swelling, calf tenderness Back exam: Present: normal inspection Neurological exam: Present: alert, oriented X3, CN II-XII intact Psychiatric exam: Present: normal affect, normal mood Skin exam: Present: warm, dry, intact, normal color. Absent: rash Course Vital Signs 07/08/19 17:23 Temperature 97.6 F Pulse Rate 58 L Respiratory 20 Rate Blood Pressure 153/87 O2 Sat by Pulse 99 Oximetry - Reevaluation(s) Reevaluation #1: 07/08/19 17:42 Medical records reviewed Medical Decision Making - Medical Decision Making 59 female the ER with severe left flank pain left-sided abdominal pain. Symptoms are improved here in the ER, CT shows nonobstructing left stone, some blood in the urine. Likely recently passed out. Patient can be discharged home - Lab Data Result diagrams: 07/08/19 18:00 07/08/19 18:00 Lab Results 07/08/19 07/08/19 07/08/19 Range/Units 18:00 18:00 18:00 WBC 5.2 (3.8-10.6) k/uL RBC 4.68 (3.80-5.40) m/uL Hgb 14.8 (11.4-16.0) gm/dL Hct 44.4 (34.0-46.0) % MCV 94.9 (80.0-100.0) fL MCH 31.6 (25.0-35.0) pg MCHC 33.4 (31.0-37.0) g/dL RDW 14.5 (11.5-15.5) % Plt Count 348 (150-450) k/uL Neutrophils % 81 % Lymphocytes % 13 % Monocytes % 4 % Eosinophils % 1 % Basophils % 1 % Neutrophils # 4.2 (1.3-7.7) k/uL Lymphocytes # 0.7 L (1.0-4.8) k/uL Monocytes # 0.2 (0-1.0) k/uL Eosinophils # 0.0 (0-0.7) k/uL Basophils # 0.0 (0-0.2) k/uL Sodium 140 (137-145) mmol/L Potassium 4.5 (3.5-5.1) mmol/L Chloride 105 (98-107) mmol/L Carbon Dioxide 25 (22-30) mmol/L Anion Gap 10 mmol/L BUN 14 (7-17) mg/dL Creatinine 0.71 (0.52-1.04) mg/dL Est GFR (CKD-EPI)AfAm >90 (>60 ml/min/1.73 sqM) Est GFR (CKD-EPI)NonAf >90 (>60 ml/min/1.73 sqM) Glucose 165 H (74-99) mg/dL Plasma Lactic Acid Thomas 1.9 (0.7-2.0) mmol/L Calcium 10.2 (8.4-10.2) mg/dL Total Bilirubin 0.5 (0.2-1.3) mg/dL AST 29 (14-36) U/L ALT 27 (9-52) U/L Alkaline Phosphatase 95 (38-126) U/L Creatine Kinase 85 (30-135) U/L Total Protein 7.4 (6.3-8.2) g/dL Albumin 4.4 (3.5-5.0) g/dL Amylase 75 (30-110) U/L Lipase 108 (23-300) U/L Urine Color Urine Appearance (Clear) Urine pH (5.0-8.0) Ur Specific [place] (1.001-1.035) Urine Protein (Negative) Urine Glucose (UA) (Negative) Urine Ketones (Negative) Urine Blood (Negative) Urine Nitrite (Negative) Urine Bilirubin (Negative) Urine Urobilinogen (<2.0) mg/dL Ur Leukocyte Esterase (Negative) Urine RBC (0-5) /hpf Urine WBC (0-5) /hpf Ur Squamous Epith Cells (0-4) /hpf Urine Bacteria (None) /hpf Urine Mucus (None) /hpf 07/08/19 Range/Units 18:00 WBC (3.8-10.6) k/uL RBC (3.80-5.40) m/uL Hgb (11.4-16.0) gm/dL Hct (34.0-46.0) % MCV (80.0-100.0) fL MCH (25.0-35.0) pg MCHC (31.0-37.0) g/dL RDW (11.5-15.5) % Plt Count (150-450) k/uL Neutrophils % % Lymphocytes % % Monocytes % % Eosinophils % % Basophils % % Neutrophils # (1.3-7.7) k/uL Lymphocytes # (1.0-4.8) k/uL Monocytes # (0-1.0) k/uL Eosinophils # (0-0.7) k/uL Basophils # (0-0.2) k/uL Sodium (137-145) mmol/L Potassium (3.5-5.1) mmol/L Chloride (98-107) mmol/L Carbon Dioxide (22-30) mmol/L Anion Gap mmol/L BUN (7-17) mg/dL Creatinine (0.52-1.04) mg/dL Est GFR (CKD-EPI)AfAm (>60 ml/min/1.73 sqM) Est GFR (CKD-EPI)NonAf (>60 ml/min/1.73 sqM) Glucose (74-99) mg/dL Plasma Lactic Acid Thomas (0.7-2.0) mmol/L Calcium (8.4-10.2) mg/dL Total Bilirubin (0.2-1.3) mg/dL AST (14-36) U/L ALT (9-52) U/L Alkaline Phosphatase (38-126) U/L Creatine Kinase (30-135) U/L Total Protein (6.3-8.2) g/dL Albumin (3.5-5.0) g/dL Amylase (30-110) U/L Lipase (23-300) U/L Urine Color Yellow Urine Appearance Clear (Clear) Urine pH 7.0 (5.0-8.0) Ur Specific [place] 1.029 (1.001-1.035) Urine Protein 1+ H (Negative) Urine Glucose (UA) Negative (Negative) Urine Ketones 4+ H (Negative) Urine Blood Moderate H (Negative) Urine Nitrite Negative (Negative) Urine Bilirubin Negative (Negative) Urine Urobilinogen 2.0 (<2.0) mg/dL Ur Leukocyte Esterase Moderate H (Negative) Urine RBC >182 H (0-5) /hpf Urine WBC 8 H (0-5) /hpf Ur Squamous Epith Cells 2 (0-4) /hpf Urine Bacteria Rare H (None) /hpf Urine Mucus Moderate H (None) /hpf - Radiology Data Radiology results: report reviewed (CT abdomen pelvis shows left-sided kidney stone), image reviewed Disposition Clinical Impression: Abdominal pain, Left renal stone Disposition: HOME SELF-CARE Condition: Good Instructions (If sedation given, give patient instructions): Kidney Stones (ED) Is patient prescribed a controlled substance at d/c from ED?: No Referrals: Nonstaff,Physician [REFERRING] - 1-2 days
[2019-07-08 18:17] LABS: Basophils % (A) 1 %; Eosinophils % (A) 1 %; HCT 44.4 % (34.0-46.0); HGB 14.8 gm/dL (11.4-16.0); Lymphocytes # (A) 0.7 k/uL (1.0-4.8); Lymphocytes % (A) 13 %; MCH 31.6 pg (25.0-35.0); MCHC 33.4 g/dL (31.0-37.0); MCV 94.9 fL (80.0-100.0); Mean Platelet Volume 7.2; Monocytes # (A) 0.2 k/uL (0-1.0); Monocytes % (A) 4 %; Neutrophils # (A) 4.2 k/uL (1.3-7.7); Neutrophils % (A) 81 %; Platelet Count 348 k/uL (150-450); RBC 4.68 m/uL (3.80-5.40); RDW 14.5 % (11.5-15.5); WBC 5.2 k/uL (3.8-10.6)
[2019-07-08 18:20] LABS: Appearance,Urine Clear (Clear); Bacteria,Urine Rare /hpf; Bilirubin,Urine Negative (Negative); Blood,Urine Moderate (Negative); Color,Urine Yellow; Glucose,Urine (UA) Negative (Negative); Ketones,Urine 4+ (Negative); Leukocyte Esterase,Urine Moderate (Negative); Mucus,Urine Moderate /hpf; Nitrite,Urine Negative (Negative); Protein,Urine 1+ (Negative); RBC,Urine >182 /hpf (0-5); Specific Gravity,Urine 1.029 (1.001-1.035); Squamous Epithelial Cell,Urine 2 /hpf (0-4); WBC,Urine 8 /hpf (0-5)
[2019-07-08 18:25] LABS: ALT 27 U/L (9-52); AST 29 U/L (14-36); African American GFR (CKD) >90 (>60 ml/min/1.73 sqM); Albumin 4.4 g/dL (3.5-5.0); Alkaline Phosphatase 95 U/L (38-126); Amylase 75 U/L (30-110); Anion Gap 10 mmol/L; Blood Urea Nitrogen 14 mg/dL (7-17); Calcium 10.2 mg/dL (8.4-10.2); Carbon Dioxide 25 mmol/L (22-30); Chloride 105 mmol/L (98-107); Creatine Kinase 85 U/L (30-135); Glucose 165 mg/dL (74-99); Potassium 4.5 mmol/L (3.5-5.1); Sodium 140 mmol/L (137-145); Total Bilirubin 0.5 mg/dL (0.2-1.3); Total Protein 7.4 g/dL (6.3-8.2)
--- NOTE | 2019-07-08 18:46 | CT ---
EXAMINATION TYPE: CT abdomen pelvis wo con DATE OF EXAM: 07/08/2019 COMPARISON: 04/15/2019 HISTORY: Left flank pain CT DLP: 341.1 mGycm Automated exposure control for dose reduction was used. TECHNIQUE: Helical acquisition of images was performed from the lung bases through the pelvis. FINDINGS: Lung bases are clear of infiltrate. There is no pleural effusion. Heart size is normal. Liver spleen pancreas gallbladder appear normal. Bile ducts are not dilated. There is no adrenal mass . Kidneys have normal size. There is 1 cm calculus in the upper left renal pelvis. There is no hydron ephrosis. There is no retroperitoneal adenopathy. Bladder is almost empty. There are numerous phlebol iths in the pelvis. There is no free fluid in the pelvis. There is no inguinal hernia. There is no mesenteric edema. There is no sign of a bowel obstruction. The appendix appears normal. T here are spondylotic changes in the lumbar spine with L3-4 lateral mild subluxation deformity. The [place] pelvis appears intact. There is osteosclerosis at the L3-4 disc. Uterus is anteverted. IMPRESSION: NONOBSTRUCTING LEFT RENAL CALCULUS. NO SIGN OF ACUTE ABDOMEN AND PELVIS. THERE IS CLEARING OF THE CON STIPATION COMPARED TO OLD EXAM. THE LEFT RENAL CALCULUS HAS MIGRATED SUPERIORLY COMPARED TO OLD EXAM.
[2019-07-08] MEDS ORDERED: ACET/COD 300 MG/30 MG STARTER PACK 6 TAB BTL PO STA (18:53)
[2019-07-08 19:48] VITALS: BP 118/71; PULSE 64; RESP 18; TEMP 98.9
== END 2019-07-08 20:07 | disposition home or self-care (01) ==
LOC: EC 17:20
DX: N20.0 Calculus of kidney (principal); J45.909 Unspecified asthma, uncomplicated; M19.90 Unspecified osteoarthritis, unspecified site; F32.9 Major depressive disorder, single episode, unspecified; F41.0 Panic disorder [episodic paroxysmal anxiety]; Z87.891 Personal history of nicotine dependence; Z88.0 Allergy status to penicillin; Z79.51 Long term (current) use of inhaled steroids; Z79.899 Other long term (current) drug therapy; Z98.1 Arthrodesis status
CPT/HCPCS: 36415; 80053; 82150; 82550; 83605; 83690; 85025; 81001; 87086; 74176; 99285; 96374; 96375 ×2; 96361 ×2; J2270; J2405; J1885

== ENCOUNTER 2019-07-28 22:43 | Inpatient (IN) | payer MEDICARE, OTHER ==
[2019-07-28 23:15] LABS: Basophils % (A) 0 %; Eosinophils # (A) 0.1 k/uL (0-0.7); Eosinophils % (A) 1 %; HCT 38.3 % (34.0-46.0); HGB 12.9 gm/dL (11.4-16.0); Lymphocytes # (A) 1.2 k/uL (1.0-4.8); Lymphocytes % (A) 14 %; MCH 31.2 pg (25.0-35.0); MCHC 33.7 g/dL (31.0-37.0); MCV 92.8 fL (80.0-100.0); Monocytes # (A) 0.6 k/uL (0-1.0); Monocytes % (A) 6 %; Neutrophils % (A) 77 %; Platelet Count 244 k/uL (150-450); RBC 4.12 m/uL (3.80-5.40); RDW 12.7 % (11.5-15.5); WBC 9.1 k/uL (3.8-10.6)
[2019-07-28 23:37] LABS: Albumin 3.8 g/dL (3.5-5.0); Calcium 9.5 mg/dL (8.4-10.2); Total Bilirubin 0.4 mg/dL (0.2-1.3); Total Protein 6.4 g/dL (6.3-8.2)
[2019-07-29] MEDS ORDERED: MORPHINE SULFATE 4 MG/ML SYRINGE IV STA (00:20)
--- NOTE | 2019-07-29 00:22 | ED ---
Abdominal Pain HPI - General Chief Complaint: Abdominal Pain Stated Complaint: abd pain Time Seen by Provider: 07/28/19 22:45 Source: patient, EMS Mode of arrival: EMS Limitations: no limitations - History of Present Illness Initial Comments: Patient is 59-year-old woman who presents with left lower quadrant and left flank pain. She states that earlier in the day she had had a lithotripsy performed for left-sided kidney stone. She got home and then about an hour later started having sharp left lower quadrant pains. When the pain became progressively worse she decided to come here for evaluation. She states currently the pain is 9 out of 10 severity, though somewhat colicky. She has not noted worsening or relieving factors. No associated symptoms. MD Complaint: abdominal pain -: hour(s) Location: LLQ, L flank Radiation: none Severity: severe Severity scale (1-10): 9 Quality: sharp Consistency: constant Improves With: nothing Worsens With: nothing Associated Symptoms: denies other symptoms - Related Data Home Medications Medication Instructions Recorded Confirmed Nitroglycerin Sl Tabs [Nitrostat] 0.4 mg PO Q5M PRN 04/28/14 08/01/19 clonazePAM [KlonoPIN] 2 mg PO HS 03/15/16 08/01/19 Albuterol Inhaler [Ventolin Hfa 2 puff INHALATION RT-Q6H PRN 11/19/18 08/01/19 Inhaler] Fluticasone/Vilanterol [Breo 1 puff INHALATION RT-DAILY 11/19/18 08/01/19 Ellipta 100-25 Mcg Inhaler] DULoxetine HCL [Cymbalta] 60 mg PO BID 04/15/19 08/01/19 traZODone HCL 300 mg PO HS 04/15/19 08/01/19 SUMAtriptan SUCCINATE [Imitrex] 6 mg SQ Q8HR PRN 04/16/19 08/01/19 ARIPiprazole [Abilify] 20 mg PO DAILY 07/28/19 08/01/19 Albuterol Nebulized [Ventolin 2.5 mg INHALATION RT-QID PRN 07/28/19 08/01/19 Nebulized] Multivitamins, Thera [Multivitamin 1 tab PO DAILY 07/28/19 08/01/19 (formulary)] Varenicline [Chantix Continuing 1 mg PO BID 07/28/19 08/01/19 Pack] Previous Rx's Medication Instructions Recorded Cephalexin [Keflex] 500 mg PO Q6HR #40 cap 08/01/19 Ondansetron [Zofran ODT] 4 mg PO Q8HR PRN #10 tab 08/01/19 Tamsulosin HCl [Flomax] 0.4 mg PO DAILY #7 cap 08/01/19 Allergies Allergy/AdvReac Type Severity Reaction Status Date / Time amoxicillin [From Augmentin] AdvReac Nausea & Verified 07/28/19 22:56 Vomiting & Diarrhea clavulanic acid AdvReac Nausea & Verified 07/28/19 22:56 [From Augmentin] Vomiting & Diarrhea Review of Systems ROS Statement: Those systems with pertinent positive or pertinent negative responses have been documented in the HPI. ROS Other: All systems not noted in ROS Statement are negative. Constitutional: Denies: fever, chills Respiratory: Denies: cough, dyspnea Cardiovascular: Denies: chest pain, palpitations, edema Gastrointestinal: Reports: abdominal pain. Denies: nausea, vomiting, diarrhea Genitourinary: Denies: dysuria, hematuria Musculoskeletal: Denies: back pain Skin: Denies: rash Neurological: Denies: headache, weakness, numbness Past Medical History Past Medical History: Asthma, Chest Pain / Angina, Hyperlipidemia, Osteoarthritis (OA) Additional Past Medical History / Comment(s): HYPOTENSION, STATES LEAKY HEART VALVE AND A HOLE BETWEEN HEART CHAMBERS,. ridney stones History of Any Multi-Drug Resistant Organisms: None Reported Past Surgical History: Back Surgery, Orthopedic Surgery Additional Past Surgical History / Comment(s): CERVICAL FUSION. RIGHT SHOULDER ROTATOR CUFF SURGERY, PAIN CLINIC PROCEDURES. Past Anesthesia/Blood Transfusion Reactions: No Reported Reaction Additional Past Anesthesia/Blood Transfusion Reaction / Comment(s): UNKNOWN FAMILY HX. Past Psychological History: Anxiety, Depression, Panic Disorder Smoking Status: Former smoker Past Alcohol Use History: Occasional Past Drug Use History: None Reported - Past Family History Father Family Medical History: Cancer Additional Family Medical History / Comment(s): LUNG CANCER. Mother Family Medical History: Unable to Obtain General Exam Limitations: no limitations General appearance: alert, in no apparent distress Eye exam: Present: normal appearance. Absent: scleral icterus, conjunctival injection Neck exam: Present: normal inspection Respiratory exam: Present: normal lung sounds bilaterally. Absent: respiratory distress, wheezes, rales, rhonchi, stridor Cardiovascular Exam: Present: regular rate, normal rhythm, normal heart sounds GI/Abdominal exam: Present: soft. Absent: distended, tenderness, guarding, rebound, rigid, mass Extremities exam: Present: normal inspection, normal capillary refill. Absent: pedal edema, calf tenderness Back exam: Present: normal inspection. Absent: CVA tenderness (R), CVA tenderness (L) Neurological exam: Present: alert Skin exam: Present: warm, dry, intact, normal color. Absent: rash Course Vital Signs 07/28/19 07/29/19 07/29/19 22:48 00:03 06:00 Temperature 98.5 F 98 F Pulse Rate 73 64 Pulse Rate [ 83 Pulse Oximetery ] Respiratory 18 18 18 Rate Blood Pressure 107/88 136/96 Blood Pressure 143/97 [Right Arm] O2 Sat by Pulse 98 95 98 Oximetry 07/29/19 06:06 Temperature 98.1 F Pulse Rate 77 Pulse Rate [ Pulse Oximetery ] Respiratory 18 Rate Blood Pressure 123/81 Blood Pressure [Right Arm] O2 Sat by Pulse 96 Oximetry Medical Decision Making - Lab Data Result diagrams: 07/30/19 10:45 07/30/19 10:45 Lab Results 07/28/19 07/28/19 07/29/19 Range/Units 22:59 22:59 00:24 WBC 9.1 (3.8-10.6) k/uL RBC 4.12 (3.80-5.40) m/uL Hgb 12.9 (11.4-16.0) gm/dL Hct 38.3 (34.0-46.0) % MCV 92.8 (80.0-100.0) fL MCH 31.2 (25.0-35.0) pg MCHC 33.7 (31.0-37.0) g/dL RDW 12.7 (11.5-15.5) % Plt Count 244 (150-450) k/uL Neutrophils % 77 % Lymphocytes % 14 % Monocytes % 6 % Eosinophils % 1 % Basophils % 0 % Neutrophils # 7.0 (1.3-7.7) k/uL Lymphocytes # 1.2 (1.0-4.8) k/uL Monocytes # 0.6 (0-1.0) k/uL Eosinophils # 0.1 (0-0.7) k/uL Basophils # 0.0 (0-0.2) k/uL PT (9.0-12.0) sec INR (<1.2) Sodium 139 (137-145) mmol/L Potassium 4.0 (3.5-5.1) mmol/L Chloride 101 (98-107) mmol/L Carbon Dioxide 30 (22-30) mmol/L Anion Gap 8 mmol/L BUN 13 (7-17) mg/dL Creatinine 1.02 (0.52-1.04) mg/dL Est GFR (CKD-EPI)AfAm 69 (>60 ml/min/1.73 sqM) Est GFR (CKD-EPI)NonAf 60 (>60 ml/min/1.73 sqM) Glucose 108 H (74-99) mg/dL Calcium 9.5 (8.4-10.2) mg/dL Total Bilirubin 0.4 (0.2-1.3) mg/dL AST 27 (14-36) U/L ALT 19 (9-52) U/L Alkaline Phosphatase 70 (38-126) U/L Total Protein 6.4 (6.3-8.2) g/dL Albumin 3.8 (3.5-5.0) g/dL Amylase 71 (30-110) U/L Lipase 206 (23-300) U/L Urine Color Red Urine Appearance Bloody H (Clear) Urine RBC >182 H (0-5) /hpf Urine Bacteria Rare H (None) /hpf Urine Mucus Many H (None) /hpf 07/30/19 07/30/19 07/30/19 Range/Units 10:45 10:45 10:45 WBC 7.0 (3.8-10.6) k/uL RBC 3.38 L (3.80-5.40) m/uL Hgb 10.7 L (11.4-16.0) gm/dL Hct 31.7 L (34.0-46.0) % MCV 93.8 (80.0-100.0) fL MCH 31.6 (25.0-35.0) pg MCHC 33.7 (31.0-37.0) g/dL RDW 13.2 (11.5-15.5) % Plt Count 226 (150-450) k/uL Neutrophils % 75 % Lymphocytes % 14 % Monocytes % 8 % Eosinophils % 1 % Basophils % 1 % Neutrophils # 5.2 (1.3-7.7) k/uL Lymphocytes # 1.0 (1.0-4.8) k/uL Monocytes # 0.6 (0-1.0) k/uL Eosinophils # 0.1 (0-0.7) k/uL Basophils # 0.0 (0-0.2) k/uL PT 9.5 (9.0-12.0) sec INR 0.9 (<1.2) Sodium 137 (137-145) mmol/L Potassium 4.1 (3.5-5.1) mmol/L Chloride 103 (98-107) mmol/L Carbon Dioxide 27 (22-30) mmol/L Anion Gap 7 mmol/L BUN 15 (7-17) mg/dL Creatinine 1.03 (0.52-1.04) mg/dL Est GFR (CKD-EPI)AfAm 68 (>60 ml/min/1.73 sqM) Est GFR (CKD-EPI)NonAf 59 (>60 ml/min/1.73 sqM) Glucose 113 H (74-99) mg/dL Calcium 9.0 (8.4-10.2) mg/dL Total Bilirubin (0.2-1.3) mg/dL AST (14-36) U/L ALT (9-52) U/L Alkaline Phosphatase (38-126) U/L Total Protein (6.3-8.2) g/dL Albumin (3.5-5.0) g/dL Amylase (30-110) U/L Lipase (23-300) U/L Urine Color Urine Appearance (Clear) Urine RBC (0-5) /hpf Urine Bacteria (None) /hpf Urine Mucus (None) /hpf Disposition Clinical Impression: Renal colic, Hematuria Disposition: ADMITTED IP TO THIS HOSP Condition: Good
[2019-07-29 00:46] LABS: Appearance,Urine Bloody (Clear); Color,Urine Red
[2019-07-29 00:50] LABS: Bacteria,Urine Rare /hpf; Mucus,Urine Many /hpf; RBC,Urine >182 /hpf (0-5)
[2019-07-29] MEDS ORDERED: TAMSULOSIN 0.4 MG CAP.ER.24H PO STA ×2 (02:36→16:24)
[2019-07-29] MEDS ORDERED: HYDROcodone/APAP 7.5-325MG 1 EACH TAB PO ONE (02:36)
[2019-07-29] MEDS ORDERED: ONDANSETRON 4 MG/2 ML VIAL IVP STA (03:29)
[2019-07-29] MEDS ORDERED: KETOROLAC 30 MG/ML 1 ML VIAL IVP STA (03:29)
--- NOTE | 2019-07-29 04:42 | XR ---
INDICATION: Abdominal pain COMPARISON: Abdominal radiograph 03/22/19 FINDINGS: 2 upright AP views of the abdomen are provided. The bowel gas pattern is nonspecific and nonobstructive. There is no evidence of free air. There is a 7 mm calcification projecting over the left renal fossa. There are degenerative changes of the lumbar spine. There are no acute osseous findings. Multiple pelvic phleboliths are noted. IMPRESSION: 1. Nonspecific, nonobstructive bowel gas pattern. 2. Calcification measuring 7 mm over the left renal fossa, possibly a left kidney stone.
[2019-07-29] MEDS ORDERED: NALOXONE 0.4 MG/ML 1 ML VIAL IV PRN (05:05)
[2019-07-29] MEDS ORDERED: ONDANSETRON 4 MG/2 ML VIAL IVP PRN (05:05)
[2019-07-29] MEDS: SODIUM CHLORIDE 0.9% 1,000 ML IV SCH (06:29)
[2019-07-29] MEDS: HYDROmorphone 0.5 MG/0.5 ML SYRINGE IVP PRN ×4 (06:30→22:12)
[2019-07-29] MEDS ORDERED: NITROGLYCERIN SL TABS 0.4 MG TAB SUBLINGUAL PRN (10:20)
[2019-07-29] MEDS: NICOTINE 14MG/24HR PATCH TRANSDERM SCH (12:58)
[2019-07-29] MEDS: DULoxetine HCL 60 MG CAPSULE.DR PO SCH ×2 (12:58→22:08)
--- NOTE | 2019-07-29 13:54 | P.HPIM ---
History of Present Illness This is a pleasant 59 years old female with past medical history of asthma, angina, hyperlipidemia, leaky valve, exactly/depression, panic attack. Osteoarthritis/status post back surgery, cervical fusion and right shoulder rotator cuff surgery. She follow up with pain clinic. She presents because of abdominal pain. Patient has history of left kidney stone, she has this left flank pain for more than a month that comes and goes, yesterday she went to [facility] where she had procedure to break down her stone, after the procedure she went home and she developed severe pain with vomiting and hematuria so she came to emergency room. Her pain was 10/10, and the left flank, nonradiating, felt like sharp/throbbing at times. With no fever or chills. But she vomited yesterday and none today. Her pain is better controlled and she is not in distress today after she got her pain medication. Vitals his stable and patient is afebrile. Labs were unremarkable including CBC, BMP and liver enzymes however urinalysis showing hematuria. She was in the hospital about 3 weeks ago when she visits to the emergency room for left flank pain radiating to the left groin. At that time she had a CAT scan showing nonobstructing left stone with mild hematuria and she was discharged home from the emergency room with a recommendation for follow-up. CAT scan of the abdomen on 07/08/2019: 1 cm left upper renal pelvises tone with no hydronephrosis. The stone looks like migrated superiorly compared to previous imaging. No lymphadenopathy. Review of Systems CONSTITUTIONAL: No fever, no malaise, no fatigue. HEENT: No recent visual problems or hearing problems. Denied any sore throat. CARDIOVASCULAR: No orthopnea, PND, no palpitations, no syncope. PULMONARY: No shortness of breath, no cough, no hemoptysis. GASTROINTESTINAL: No diarrhea, no nausea, no vomiting, no abdominal pain. Normoactive bowel sounds. NEUROLOGICAL: No headaches, no weakness, no numbness. HEMATOLOGICAL: Denies any bleeding or petechiae. GENITOURINARY: Denies any burning micturition, frequency, or urgency. MUSCULOSKELETAL/RHEUMATOLOGICAL: Denies any joint pain, swelling, or any muscle pain. ENDOCRINE: Denies any polyuria or polydipsia. 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 kidney stones History of Any Multi-Drug Resistant Organisms: None Reported Past Surgical History: Back Surgery, Orthopedic Surgery Additional Past Surgical History / Comment(s): CERVICAL FUSION. RIGHT SHOULDER ROTATOR CUFF SURGERY, PAIN CLINIC PROCEDURES Past Anesthesia/Blood Transfusion Reactions: No Reported Reaction Additional Past Anesthesia/Blood Transfusion Reaction / Comment(s): UNKNOWN FAMILY HX. Past Psychological History: Anxiety, Depression, Panic Disorder Additional Psychological History / Comment(s): STATES 3 MONTHS AGO. Smoking Status: Former smoker Past Alcohol Use History: Occasional Additional Past Alcohol Use History / Comment(s): Recently quit smoking. Past Drug Use History: None Reported - Past Family History Father Family Medical History: Cancer Additional Family Medical History / Comment(s): LUNG CANCER. Mother Family Medical History: Unable to Obtain Medications and Allergies Home Medications Medication Instructions Recorded Confirmed Type Nitroglycerin Sl Tabs [Nitrostat] 0.4 mg PO Q5M PRN 04/28/14 07/29/19 History clonazePAM [KlonoPIN] 2 mg PO HS 03/15/16 07/28/19 History Albuterol Inhaler [Ventolin Hfa 2 puff INHALATION RT-Q6H PRN 11/19/18 07/29/19 History Inhaler] Fluticasone/Vilanterol [Breo 1 puff INHALATION RT-DAILY 11/19/18 07/28/19 History Ellipta 100-25 Mcg Inhaler] DULoxetine HCL [Cymbalta] 60 mg PO BID 04/15/19 07/28/19 History traZODone HCL 300 mg PO HS 04/15/19 07/28/19 History SUMAtriptan SUCCINATE [Imitrex] 6 mg SQ Q8HR PRN 04/16/19 07/29/19 History ARIPiprazole [Abilify] 20 mg PO DAILY 07/28/19 07/28/19 History Albuterol Nebulized [Ventolin 2.5 mg INHALATION RT-QID PRN 07/28/19 07/29/19 History Nebulized] Multivitamins, Thera [Multivitamin 1 tab PO DAILY 07/28/19 07/29/19 History (formulary)] Varenicline [Chantix Continuing 1 mg PO BID 07/28/19 07/28/19 History Pack] Allergies Allergy/AdvReac Type Severity Reaction Status Date / Time amoxicillin [From Augmentin] AdvReac Nausea & Verified 07/28/19 22:56 Vomiting & Diarrhea clavulanic acid AdvReac Nausea & Verified 07/28/19 22:56 [From Augmentin] Vomiting & Diarrhea Physical Exam Vitals: Vital Signs Temp Pulse Pulse Resp BP BP Pulse Ox 07/29/19 12:29 71 16 117/77 95 07/29/19 08:38 98.5 F 67 16 109/71 96 07/29/19 08:00 16 07/29/19 06:06 98.1 F 77 18 123/81 96 07/29/19 06:00 98 F 83 18 143/97 98 07/29/19 00:03 64 18 136/96 95 07/28/19 22:48 98.5 F 73 18 107/88 98 Intake and Output 07/28/19 07/29/19 07/29/19 22:59 06:59 14:59 Intake Total 480 Balance 480 Intake: Oral 480 Other: Voiding Method Toilet Toilet Weight 56.245 kg 57 kg GENERAL: The patient is alert and oriented x3, not in any acute distress. Well developed, well nourished. HEENT: Pupils are round and equally reacting to light. EOMI. No scleral icterus. No conjunctival pallor. Normocephalic, atraumatic. No pharyngeal erythema. No thyromegaly. CARDIOVASCULAR: S1 and S2 present. No murmurs, rubs, or gallops. PULMONARY: Chest is clear to auscultation, no wheezing or crackles. -ABDOMEN: Soft, nondistended, normoactive bowel sounds. No palpable organomegaly. No flank tenderness, no rebound tenderness, left CVA tenderness MUSCULOSKELETAL: No joint swelling or deformity. EXTREMITIES: No cyanosis, clubbing, or pedal edema. NEUROLOGICAL: Gross neurological examination did not reveal any focal deficits. SKIN: No rashes. Results CBC & Chem 7: 07/28/19 22:59 07/28/19 22:59 Labs: Abnormal Lab Results - Last 24 Hours (Table) 07/28/19 07/29/19 Range/Units 22:59 00:24 Glucose 108 H (74-99) mg/dL Urine Appearance Bloody H (Clear) Urine RBC >182 H (0-5) /hpf Urine Bacteria Rare H (None) /hpf Urine Mucus Many H (None) /hpf Thrombosis Risk Factor Assmnt - Choose All That Apply Any of the Below Risk Factors Present?: Yes Each Factor Represents 1 point: Age 41-60 years Other Risk Factors: No Other congenital or acquired thrombophilia - If yes, enter type in comment: No Thrombosis Risk Factor Assessment Total Risk Factor Score: 1 Thrombosis Risk Factor Assessment Level: Low Risk Assessment and Plan Assessment: Left renal colic Hematuria 1 cm left renal stone in the upper left renal pelvis, no evidence of hydronephrosis last month History of asthma, not an active issue History of angina Hyperlipidemia History of anxiety/depression and panic attack, not in active issue Osteoarthritis/status post back surgery, cervical fusion and right shoulder rotator cuff surgery. Plan: This is a pleasant 59 soft female who presents with left renal colic and kidney stone. Continue with pain management, asked for urology consult. Monitor hemoglobin. Monitor vitals. medication were reviewed.. Continue same treatment. Continue with symptomatic treatment. Resume home medication. Monitor lytes and vitals. DVT and GI prophylaxis. Further recommendations of the clinical course of the patient DVT prophylaxis: No heparin in view of hematuria GI Prophylaxis: Pepcid PT/OT: Pending Prognosis is guarded
--- NOTE | 2019-07-29 16:34 | P.GSCN ---
History of Present Illness Consult date: 07/29/19 Reason for Consult: Left flank pain History of present illness: The patient is a 59-year-old female admitted through the emergency room early th morning for evaluation of severe left flank pain. She has a history of a 7 x 10 mm right renal pelvic calculus which was noted on a computed tomography scan on 07/08/2019. She underwent outpatient ESWL treatment of the calculus at [facility] performed by Dr. Wilson yesterday afternoon approximately 4 PM. She was told that the calculus fragmented completely. She felt well until approximately 7:30 last night when she developed severe left flank pain associated with nausea and vomiting. She also began experiencing gross hematuria. Her pain and hematuria persisted and she came to the emergency room for further evaluation. She was afebrile. Her white blood count was 9100. BUN/creatinine were 13/1.02. Urinalysis showed microscopic hematuria. A KUB was interpreted as showing a 7 mm left renal calculus however on further review there is no calculus visible in the region of the left kidney however there is a 7 mm calcification adjacent to the right L2 vertebra which corresponds to a vascular calcification from the computed tomography scan. The patient says that she feels better then last night although she is still requiring analgesics for control of her pain. She continues to pass blood in her urine. She does not have a history of recurrent urinary tract infections. She says she has passed 2 kidney stones prior to this year. She has never required surgical treatment of a stone until yesterday. There is no family history of urolithiasis. Review of Systems - Constitutional Denies fever - Cardiovascular Denies shortness of breath - Gastrointestinal Reports as per HPI - Genitourinary Genitourinary: Reports as per HPI Past Medical History Past Medical History: Asthma, Chest Pain / Angina, Hyperlipidemia, Osteoarthritis (OA) Additional Past Medical History / Comment(s): HYPOTENSION, possible heart murmur. kidney stones History of Any Multi-Drug Resistant Organisms: None Reported Past Surgical History: Back Surgery, Orthopedic Surgery Additional Past Surgical History / Comment(s): CERVICAL FUSION. RIGHT SHOULDER ROTATOR CUFF SURGERY, PAIN CLINIC PROCEDURES Past Anesthesia/Blood Transfusion Reactions: No Reported Reaction Additional Past Anesthesia/Blood Transfusion Reaction / Comm: UNKNOWN FAMILY HX. Past Psychological History: Anxiety, Depression, Panic Disorder Additional Psychological History / Comment(s): STATES 3 MONTHS AGO. Smoking Status: Former smoker Past Alcohol Use History: Occasional Additional Past Alcohol Use History / Comment(s): Recently quit smoking. Past Drug Use History: None Reported - Past Family History Father Family Medical History: Cancer Additional Family Medical History / Comment(s): LUNG CANCER. Mother Family Medical History: Unable to Obtain Medications and Allergies Home Medications Medication Instructions Recorded Confirmed Type Nitroglycerin Sl Tabs [Nitrostat] 0.4 mg PO Q5M PRN 04/28/14 07/29/19 History clonazePAM [KlonoPIN] 2 mg PO HS 03/15/16 07/28/19 History Albuterol Inhaler [Ventolin Hfa 2 puff INHALATION RT-Q6H PRN 11/19/18 07/29/19 History Inhaler] Fluticasone/Vilanterol [Breo 1 puff INHALATION RT-DAILY 11/19/18 07/28/19 History Ellipta 100-25 Mcg Inhaler] DULoxetine HCL [Cymbalta] 60 mg PO BID 04/15/19 07/28/19 History traZODone HCL 300 mg PO HS 04/15/19 07/28/19 History SUMAtriptan SUCCINATE [Imitrex] 6 mg SQ Q8HR PRN 04/16/19 07/29/19 History ARIPiprazole [Abilify] 20 mg PO DAILY 07/28/19 07/28/19 History Albuterol Nebulized [Ventolin 2.5 mg INHALATION RT-QID PRN 07/28/19 07/29/19 H istory Nebulized] Multivitamins, Thera [Multivitamin 1 tab PO DAILY 07/28/19 07/29/19 History (formulary)] Varenicline [Chantix Continuing 1 mg PO BID 07/28/19 07/28/19 History Pack] Allergies Allergy/AdvReac Type Severity Reaction Status Date / Time amoxicillin [From Augmentin] AdvReac Nausea & Verified 07/28/19 22:56 Vomiting & Diarrhea clavulanic acid AdvReac Nausea & Verified 07/28/19 22:56 [From Augmentin] Vomiting & Diarrhea Surgical - Exam Vital Signs Temp Pulse Resp BP Pulse Ox 98.5 F 73 18 107/88 98 07/28/19 22:48 07/28/19 22:48 07/28/19 22:48 07/28/19 22:48 07/28/19 22:48 - General well developed, well nourished, no distress, other (Appears older than her stated age) - ENT other (Edentulous) - Respiratory normal respiratory effort - Abdomen Abdomen: soft, tender (Mild tenderness left upper quadrant. No left flank tenderness), no organomegaly Results - Labs 07/28/19 22:59 07/28/19 22:59 Abnormal Lab Results - Last 24 Hours (Table) 07/28/19 07/29/19 Range/Units 22:59 00:24 Glucose 108 H (74-99) mg/dL Urine Appearance Bloody H (Clear) Urine RBC >182 H (0-5) /hpf Urine Bacteria Rare H (None) /hpf Urine Mucus Many H (None) /hpf Diabetes panel 07/28/19 Range/Units 22:59 Sodium 139 (137-145) mmol/L Potassium 4.0 (3.5-5.1) mmol/L Chloride 101 (98-107) mmol/L Carbon Dioxide 30 (22-30) mmol/L BUN 13 (7-17) mg/dL Creatinine 1.02 (0.52-1.04) mg/dL Glucose 108 H (74-99) mg/dL Calcium 9.5 (8.4-10.2) mg/dL AST 27 (14-36) U/L ALT 19 (9-52) U/L Alkaline Phosphatase 70 (38-126) U/L Total Protein 6.4 (6.3-8.2) g/dL Albumin 3.8 (3.5-5.0) g/dL Calcium panel 07/28/19 Range/Units 22:59 Calcium 9.5 (8.4-10.2) mg/dL Albumin 3.8 (3.5-5.0) g/dL Pituitary panel 07/28/19 Range/Units 22:59 Sodium 139 (137-145) mmol/L Potassium 4.0 (3.5-5.1) mmol/L Chloride 101 (98-107) mmol/L Carbon Dioxide 30 (22-30) mmol/L BUN 13 (7-17) mg/dL Creatinine 1.02 (0.52-1.04) mg/dL Glucose 108 H (74-99) mg/dL Calcium 9.5 (8.4-10.2) mg/dL Adrenal panel 07/28/19 Range/Units 22:59 Sodium 139 (137-145) mmol/L Potassium 4.0 (3.5-5.1) mmol/L Chloride 101 (98-107) mmol/L Carbon Dioxide 30 (22-30) mmol/L BUN 13 (7-17) mg/dL Creatinine 1.02 (0.52-1.04) mg/dL Glucose 108 H (74-99) mg/dL Calcium 9.5 (8.4-10.2) mg/dL Total Bilirubin 0.4 (0.2-1.3) mg/dL AST 27 (14-36) U/L ALT 19 (9-52) U/L Alkaline Phosphatase 70 (38-126) U/L Total Protein 6.4 (6.3-8.2) g/dL Albumin 3.8 (3.5-5.0) g/dL Assessment and Plan (1) Acute left flank pain Narrative/Plan: The patient's left flank pain is most likely related to passage of fragments from the left kidney following ESWL. Based on review of the KUB it did not appear that any large fragments remained in the region of the left kidney or ureter. The patient may benefit from tamsulosin. She will also be tried on Toradol as an alternative to narcotics. If her pain improves then the patient could be discharged on oral analgesics and tamsulosin. Current Visit: Yes Status: Acute Code(s): R10.9 - UNSPECIFIED ABDOMINAL PAIN SNOMED Code(s): 293027658
[2019-07-29] MEDS: KETOROLAC 30 MG/ML 1 ML VIAL IVP PRN (18:04)
[2019-07-29] MEDS: SYMBICORT 80-4.5 MCG INHALER INHALATION SCH (20:29)
[2019-07-29] MEDS: ALBUTEROL NEBULIZED 2.5 MG/3 ML INHALATION PRN (20:30)
[2019-07-29] MEDS: SUMAtriptan SUCCINATE 6 MG/0.5 ML VIAL SQ PRN (20:40)
[2019-07-29] MEDS ORDERED: DULoxetine HCL 60 MG CAPSULE.DR PO SCH (21:00)
[2019-07-29] MEDS: clonazePAM 1 MG TAB PO SCH (22:07)
[2019-07-29] MEDS: traZODone HCL 100 MG TAB PO SCH (22:08)
[2019-07-30] MEDS: ALBUTEROL NEBULIZED 2.5 MG/3 ML INHALATION PRN (07:52)
[2019-07-30] MEDS: SYMBICORT 80-4.5 MCG INHALER INHALATION SCH ×2 (07:52→20:53)
[2019-07-30] MEDS: MULTIVITAMINS, THERA 1 EACH TAB PO SCH (09:03)
[2019-07-30] MEDS: DULoxetine HCL 60 MG CAPSULE.DR PO SCH ×2 (09:03→22:11)
[2019-07-30] MEDS: KETOROLAC 30 MG/ML 1 ML VIAL IVP PRN (09:04)
[2019-07-30 11:09] LABS: Basophils % (A) 1 %; Eosinophils # (A) 0.1 k/uL (0-0.7); Eosinophils % (A) 1 %; HCT 31.7 % (34.0-46.0); HGB 10.7 gm/dL (11.4-16.0); Lymphocytes % (A) 14 %; MCH 31.6 pg (25.0-35.0); MCHC 33.7 g/dL (31.0-37.0); MCV 93.8 fL (80.0-100.0); Mean Platelet Volume 7.2; Monocytes # (A) 0.6 k/uL (0-1.0); Monocytes % (A) 8 %; Neutrophils # (A) 5.2 k/uL (1.3-7.7); Neutrophils % (A) 75 %; Platelet Count 226 k/uL (150-450); RBC 3.38 m/uL (3.80-5.40); RDW 13.2 % (11.5-15.5)
[2019-07-30 11:16] LABS: INR 0.9 (<1.2); Prothrombin Time 9.5 sec (9.0-12.0)
[2019-07-30 11:29] LABS: Potassium 4.1 mmol/L (3.5-5.1)
[2019-07-30] MEDS: HYDROmorphone 0.5 MG/0.5 ML SYRINGE IVP PRN (13:07)
[2019-07-30] MEDS: NICOTINE 14MG/24HR PATCH TRANSDERM SCH (13:08)
[2019-07-30] MEDS: SODIUM CHLORIDE 0.9% 1,000 ML IV SCH (13:08)
[2019-07-30] MEDS: SUMAtriptan SUCCINATE 6 MG/0.5 ML VIAL SQ PRN (21:15)
[2019-07-30] MEDS: clonazePAM 1 MG TAB PO SCH (22:12)
[2019-07-30] MEDS: traZODone HCL 100 MG TAB PO SCH (22:13)
[2019-07-31] MEDS: HYDROmorphone 0.5 MG/0.5 ML SYRINGE IVP PRN (04:16)
[2019-07-31] MEDS: ALBUTEROL NEBULIZED 2.5 MG/3 ML INHALATION PRN (08:04)
[2019-07-31] MEDS: SYMBICORT 80-4.5 MCG INHALER INHALATION SCH (08:04)
[2019-07-31] MEDS: NICOTINE 14MG/24HR PATCH TRANSDERM SCH (09:15)
[2019-07-31] MEDS: SODIUM CHLORIDE 0.9% 1,000 ML IV SCH (09:16)
[2019-07-31] MEDS: DULoxetine HCL 60 MG CAPSULE.DR PO SCH (09:16)
[2019-07-31] MEDS: MULTIVITAMINS, THERA 1 EACH TAB PO SCH (09:16)
[2019-07-31] MEDS: SUMAtriptan SUCCINATE 6 MG/0.5 ML VIAL SQ PRN (09:17)
[2019-07-31 12:31] VITALS: BP 131/81; PULSE 80; RESP 20; TEMP 98.9
== END 2019-07-31 15:23 | disposition home or self-care (01) | DRG 392 ==
LOC: SUPCPDRO 22:43 → EC 22:43 → 6PED 07-29 05:05 → OBSVTOIN 07-31 12:56
PROVIDERS: ADMIT Hospitalist; ATTEND Hospitalist
DX: R10.9 Unspecified abdominal pain (principal); I38 Endocarditis, valve unspecified; E78.5 Hyperlipidemia, unspecified; F32.9 Major depressive disorder, single episode, unspecified; F41.0 Panic disorder [episodic paroxysmal anxiety]; R31.0 Gross hematuria; J45.909 Unspecified asthma, uncomplicated; Z79.899 Other long term (current) drug therapy; Z80.1 Family history of malignant neoplasm of trachea, bronchus and lung; Z87.442 Personal history of urinary calculi; Z87.891 Personal history of nicotine dependence; Z98.1 Arthrodesis status; Z88.0 Allergy status to penicillin; Z88.8 Allergy status to other drugs, medicaments and biological substances; Z63.4 Disappearance and death of family member
CPT/HCPCS: 36415; 74018; 80048; 80053; 81001; 82150; 83690; 85025; 85610; 87040; 94640; 96374; 96375; 99285

== ENCOUNTER 2019-07-31 23:53 | Emergency (ER) | payer MEDICARE, OTHER ==
[2019-08-01] MEDS ORDERED: HYDROmorphone 0.5 MG/0.5 ML SYRINGE IVP STA (00:52)
[2019-08-01] MEDS ORDERED: SODIUM CHLORIDE 0.9% 1,000 ML IV STA (00:52)
[2019-08-01] MEDS ORDERED: KETOROLAC 30 MG/ML 1 ML VIAL IVP STA (00:52)
[2019-08-01] MEDS ORDERED: ONDANSETRON 4 MG/2 ML VIAL IVP STA (00:52)
[2019-08-01 01:30] LABS: Basophils # (A) 0.1 k/uL (0-0.2); Basophils % (A) 1 %; Eosinophils # (A) 0.2 k/uL (0-0.7); Eosinophils % (A) 2 %; HCT 29.6 % (34.0-46.0); HGB 10.2 gm/dL (11.4-16.0); Lymphocytes # (A) 1.1 k/uL (1.0-4.8); Lymphocytes % (A) 16 %; MCH 31.7 pg (25.0-35.0); MCHC 34.4 g/dL (31.0-37.0); Mean Platelet Volume 7.2; Monocytes # (A) 0.7 k/uL (0-1.0); Monocytes % (A) 10 %; Neutrophils # (A) 4.8 k/uL (1.3-7.7); Neutrophils % (A) 68 %; Platelet Count 216 k/uL (150-450); RBC 3.22 m/uL (3.80-5.40); RDW 12.7 % (11.5-15.5); WBC 7.1 k/uL (3.8-10.6)
--- NOTE | 2019-08-01 01:36 | ED ---
Abdominal Pain HPI - General Chief Complaint: Abdominal Pain Stated Complaint: Kidney Stone Time Seen by Provider: 08/01/19 00:24 Source: patient Mode of arrival: ambulatory Limitations: no limitations - History of Present Illness Initial Comments: 59-year-old female patient who recently underwent lithotripsy for a kidney stone on the left side presents to the emergency department today for evaluation of left lower quadrant abdominal pain. Patient states this is her second visit to this hospital since having the procedure. States that earlier today she did pass some sand-type material and some small stones. States she did have some hematuria. Patient states that her last urination there was no stones or sand- like material present but she started to have increasing pain in the left lower quadrant. Patient states she'll occasionally have some discomfort in the left flank region. Denies any known fever or chills. States she has been having some nausea and has had some dry heaves. She denies any constipation or diarrhea. States that her urologist is located at [facility]. Patient denies any recent rash, shortness breath, chest pain, diarrhea, constipation, back pain, numbness, tingling, dizziness, weakness, headache, vi sual changes, or any other complaints. - Related Data Home Medications Medication Instructions Recorded Confirmed Nitroglycerin Sl Tabs [Nitrostat] 0.4 mg PO Q5M PRN 04/28/14 08/01/19 clonazePAM [KlonoPIN] 2 mg PO HS 03/15/16 08/01/19 Albuterol Inhaler [Ventolin Hfa 2 puff INHALATION RT-Q6H PRN 11/19/18 08/01/19 Inhaler] Fluticasone/Vilanterol [Breo 1 puff INHALATION RT-DAILY 11/19/18 08/01/19 Ellipta 100-25 Mcg Inhaler] DULoxetine HCL [Cymbalta] 60 mg PO BID 04/15/19 08/01/19 traZODone HCL 300 mg PO HS 04/15/19 08/01/19 SUMAtriptan SUCCINATE [Imitrex] 6 mg SQ Q8HR PRN 04/16/19 08/01/19 ARIPiprazole [Abilify] 20 mg PO DAILY 07/28/19 08/01/19 Albuterol Nebulized [Ventolin 2.5 mg INHALATION RT-QID PRN 07/28/19 08/01/19 Nebulized] Multivitamins, Thera [Multivitamin 1 tab PO DAILY 07/28/19 08/01/19 (formulary)] Varenicline [Chantix Continuing 1 mg PO BID 07/28/19 08/01/19 Pack] Previous Rx's Medication Instructions Recorded Cephalexin [Keflex] 500 mg PO Q6HR #40 cap 08/01/19 Ondansetron [Zofran ODT] 4 mg PO Q8HR PRN #10 tab 08/01/19 Tamsulosin HCl [Flomax] 0.4 mg PO DAILY #7 cap 08/01/19 Allergies Allergy/AdvReac Type Severity Reaction Status Date / Time amoxicillin [From Augmentin] AdvReac Nausea & Verified 07/28/19 22:56 Vomiting & Diarrhea clavulanic acid AdvReac Nausea & Verified 07/28/19 22:56 [From Augmentin] Vomiting & Diarrhea Review of Systems ROS Statement: Those systems with pertinent positive or pertinent negative responses have been documented in the HPI. ROS Other: All systems not noted in ROS Statement are negative. Past Medical History Past Medical History: Asthma, Chest Pain / Angina, Hyperlipidemia, Osteoarthritis (OA) Additional Past Medical History / Comment(s): HYPOTENSION, possible heart murmur. kidney stones History of Any Multi-Drug Resistant Organisms: None Reported Past Surgical History: Back Surgery, Orthopedic Surgery Additional Past Surgical History / Comment(s): CERVICAL FUSION. RIGHT SHOULDER ROTATOR CUFF SURGERY, PAIN CLINIC PROCEDURES, lithotripsy Past Anesthesia/Blood Transfusion Reactions: No Reported Reaction Additional Past Anesthesia/Blood Transfusion Reaction / Comment(s): UNKNOWN FAMILY HX. Past Psychological History: Anxiety, Depression, Panic Disorder Smoking Status: Former smoker Past Alcohol Use History: Occasional Past Drug Use History: None Reported - Past Family History Father Family Medical History: Cancer Additional Family Medical History / Comment(s): LUNG CANCER. Mother Family Medical History: Unable to Obtain General Exam Limitations: no limitations General appearance: alert, in no apparent distress, other (This is a well- developed, well-nourished adult female patient in no acute distress. Vital signs upon presentation are temperature 100.3F, pulse 72, respirations 20, blood pressure 168/91, pulse ox 97% on room air.) Eye exam: Present: normal appearance, PERRL, EOMI. Absent: scleral icterus, conjunctival injection, periorbital swelling ENT exam: Present: normal exam, normal oropharynx, mucous membranes moist Respiratory exam: Present: normal lung sounds bilaterally. Absent: respiratory distress, wheezes, rales, rhonchi, stridor Cardiovascular Exam: Present: regular rate, normal rhythm, normal heart sounds. Absent: systolic murmur, diastolic murmur, rubs, gallop, clicks GI/Abdominal exam: Present: soft, tenderness (Left lower quadrant ), normal b owel sounds. Absent: distended, guarding, rebound, rigid Back exam: Present: normal inspection, CVA tenderness (L). Absent: CVA tenderness (R) Neurological exam: Present: alert, oriented X3, CN II-XII intact Psychiatric exam: Present: normal affect, normal mood Skin exam: Present: warm, dry, intact, normal color. Absent: rash Course Vital Signs 08/01/19 08/01/19 00:06 03:33 Temperature 100.3 F H 98.2 F Pulse Rate 72 70 Respiratory 20 18 Rate Blood Pressure 168/91 156/72 O2 Sat by Pulse 97 97 Oximetry Medical Decision Making - Medical Decision Making 59-year-old female patient presents to the emergency department today for evaluation of left lower quadrant abdominal pain and left flank pain. Patient had recent lithotripsy procedure for large kidney stone to the left ureter. Patient was admitted and patient afterwards for intractable pain. She was discharged with Tylenol with Codeine and Toradol. Patient states she has not given a prescription for Flomax. Labs reviewed and were unremarkable. Urinalysis showed a cloudy appearance with 1+ protein, 1+ ketones, large amount of blood, large leukocyte esterase, greater than 182 red blood cells, 40 white blood cells, rare bacteria, and rare mucous. Patient was given IV fluids and pain medication here in the emergency department. Upon reevaluation she is much more comfortable. We will discharge home with prescription for Flomax and Keflex. She is instructed follow up with her urologist for recheck on Friday. Return parameters were discussed in detail. She verbalizes understanding and agrees with this plan. - Lab Data Result diagrams: 08/01/19 00:21 08/01/19 00:21 Lab Results 08/01/19 08/01/19 08/01/19 Range/Units 00:21 00:21 01:34 WBC 7.1 (3.8-10.6) k/uL RBC 3.22 L (3.80-5.40) m/uL Hgb 10.2 L (11.4-16.0) gm/dL Hct 29.6 L (34.0-46.0) % MCV 92.0 (80.0-100.0) fL MCH 31.7 (25.0-35.0) pg MCHC 34.4 (31.0-37.0) g/dL RDW 12.7 (11.5-15.5) % Plt Count 216 (150-450) k/uL Neutrophils % 68 % Lymphocytes % 16 % Monocytes % 10 % Eosinophils % 2 % Basophils % 1 % Neutrophils # 4.8 (1.3-7.7) k/uL Lymphocytes # 1.1 (1.0-4.8) k/uL Monocytes # 0.7 (0-1.0) k/uL Eosinophils # 0.2 (0-0.7) k/uL Basophils # 0.1 (0-0.2) k/uL Sodium 137 (137-145) mmol/L Potassium 4.4 (3.5-5.1) mmol/L Chloride 102 (98-107) mmol/L Carbon Dioxide 26 (22-30) mmol/L Anion Gap 9 mmol/L BUN 15 (7-17) mg/dL Creatinine 0.78 (0.52-1.04) mg/dL Est GFR (CKD-EPI)AfAm >90 (>60 ml/min/1.73 sqM) Est GFR (CKD-EPI)NonAf 83 (>60 ml/min/1.73 sqM) Glucose 106 H (74-99) mg/dL Plasma Lactic Acid Thomas 0.6 L (0.7-2.0) mmol/L Calcium 9.2 (8.4-10.2) mg/dL Total Bilirubin 0.9 (0.2-1.3) mg/dL AST 36 (14-36) U/L ALT 26 (9-52) U/L Alkaline Phosphatase 77 (38-126) U/L Total Protein 6.6 (6.3-8.2) g/dL Albumin 3.9 (3.5-5.0) g/dL Amylase 59 (30-110) U/L Lipase 113 (23-300) U/L Urine Color Urine Appearance (Clear) Urine pH (5.0-8.0) Ur Specific [place] (1.001-1.035) Urine Protein (Negative) Urine Glucose (UA) (Negative) Urine Ketones (Negative) Urine Blood (Negative) Urine Nitrite (Negative) Urine Bilirubin (Negative) Urine Urobilinogen (<2.0) mg/dL Ur Leukocyte Esterase (Negative) Urine RBC (0-5) /hpf Urine WBC (0-5) /hpf Ur Squamous Epith Cells (0-4) /hpf Urine Bacteria (None) /hpf Urine Mucus (None) /hpf 08/01/19 Range/Units 02:09 WBC (3.8-10.6) k/uL RBC (3.80-5.40) m/uL Hgb (11.4-16.0) gm/dL Hct (34.0-46.0) % MCV (80.0-100.0) fL MCH (25.0-35.0) pg MCHC (31.0-37.0) g/dL RDW (11.5-15.5) % Plt Count (150-450) k/uL Neutrophils % % Lymphocytes % % Monocytes % % Eosinophils % % Basophils % % Neutrophils # (1.3-7.7) k/uL Lymphocytes # (1.0-4.8) k/uL Monocytes # (0-1.0) k/uL Eosinophils # (0-0.7) k/uL Basophils # (0-0.2) k/uL Sodium (137-145) mmol/L Potassium (3.5-5.1) mmol/L Chloride (98-107) mmol/L Carbon Dioxide (22-30) mmol/L Anion Gap mmol/L BUN (7-17) mg/dL Creatinine (0.52-1.04) mg/dL Est GFR (CKD-EPI)AfAm (>60 ml/min/1.73 sqM) Est GFR (CKD-EPI)NonAf (>60 ml/min/1.73 sqM) Glucose (74-99) mg/dL Plasma Lactic Acid Thomas (0.7-2.0) mmol/L Calcium (8.4-10.2) mg/dL Total Bilirubin (0.2-1.3) mg/dL AST (14-36) U/L ALT (9-52) U/L Alkaline Phosphatase (38-126) U/L Total Protein (6.3-8.2) g/dL Albumin (3.5-5.0) g/dL Amylase (30-110) U/L Lipase (23-300) U/L Urine Color Light Red Urine Appearance Cloudy H (Clear) Urine pH 7.5 (5.0-8.0) Ur Specific [place] 1.012 (1.001-1.035) Urine Protein 1+ H (Negative) Urine Glucose (UA) Negative (Negative) Urine Ketones 1+ H (Negative) Urine Blood Large H (Negative) Urine Nitrite Negative (Negative) Urine Bilirubin Negative (Negative) Urine Urobilinogen <2.0 (<2.0) mg/dL Ur Leukocyte Esterase Large H (Negative) Urine RBC >182 H (0-5) /hpf Urine WBC 48 H (0-5) /hpf Ur Squamous Epith Cells 2 (0-4) /hpf Urine Bacteria Rare H (None) /hpf Urine Mucus Rare H (None) /hpf Disposition Clinical Impression: Renal colic on left side Disposition: HOME SELF-CARE Condition: Good Instructions (If sedation given, give patient instructions): Renal Colic (ED), Flank Pain (ED) Additional Instructions: Continue increasing fluids. Take medications as directed. Follow-up with your urologist for recheck as soon as possible. Return to the emergency department immediately for any new, worsening, or concerning symptoms. Prescriptions: Tamsulosin HCl [Flomax] 0.4 mg PO DAILY #7 cap Cephalexin [Keflex] 500 mg PO Q6HR #40 cap Ondansetron [Zofran ODT] 4 mg PO Q8HR PRN #10 tab PRN Reason: Nausea Is patient prescribed a controlled substance at d/c from ED?: No Referrals: Jay Tsang DO [Primary Care Provider] - 1-2 days Time of Disposition: 03:06
[2019-08-01 01:58] LABS: ALT 26 U/L (9-52); AST 36 U/L (14-36); African American GFR (CKD) >90 (>60 ml/min/1.73 sqM); Albumin 3.9 g/dL (3.5-5.0); Alkaline Phosphatase 77 U/L (38-126); Amylase 59 U/L (30-110); Anion Gap 9 mmol/L; Blood Urea Nitrogen 15 mg/dL (7-17); Calcium 9.2 mg/dL (8.4-10.2); Carbon Dioxide 26 mmol/L (22-30); Chloride 102 mmol/L (98-107); Glucose 106 mg/dL (74-99); Potassium 4.4 mmol/L (3.5-5.1); Sodium 137 mmol/L (137-145); Total Bilirubin 0.9 mg/dL (0.2-1.3); Total Protein 6.6 g/dL (6.3-8.2)
[2019-08-01 02:27] LABS: Appearance,Urine Cloudy (Clear); Bacteria,Urine Rare /hpf; Bilirubin,Urine Negative (Negative); Blood,Urine Large (Negative); Color,Urine Light Red; Glucose,Urine (UA) Negative (Negative); Ketones,Urine 1+ (Negative); Leukocyte Esterase,Urine Large (Negative); Mucus,Urine Rare /hpf; Nitrite,Urine Negative (Negative); PH, Urine 7.5 (5.0-8.0); Protein,Urine 1+ (Negative); RBC,Urine >182 /hpf (0-5); Specific Gravity,Urine 1.012 (1.001-1.035); Squamous Epithelial Cell,Urine 2 /hpf (0-4); Urobilinogen,Urine <2.0 mg/dL (<2.0); WBC,Urine 48 /hpf (0-5)
[2019-08-01] MEDS ORDERED: CIPROFLOXACIN HCL 500 MG TAB PO STA (03:04)
[2019-08-01] MEDS ORDERED: TAMSULOSIN 0.4 MG CAP.ER.24H PO STA (03:04)
[2019-08-01] MEDS ORDERED: CEPHALEXIN 500MG STARTER PACK 4 CAP BTL PO STA (03:04)
[2019-08-01] MEDS ORDERED: ONDANSETRON 4 MG ODT STARTER PACK 2 TAB BTL PO STA (03:04)
[2019-08-01 03:34] VITALS: BP 156/72; PULSE 70; RESP 18; TEMP 98.2
== END 2019-08-01 03:31 | disposition home or self-care (01) ==
LOC: EC 23:53
DX: N23 Unspecified renal colic (principal); J45.909 Unspecified asthma, uncomplicated; M19.90 Unspecified osteoarthritis, unspecified site; F32.9 Major depressive disorder, single episode, unspecified; F41.0 Panic disorder [episodic paroxysmal anxiety]; Z87.891 Personal history of nicotine dependence; Z88.0 Allergy status to penicillin; Z79.51 Long term (current) use of inhaled steroids; Z79.899 Other long term (current) drug therapy; Z87.442 Personal history of urinary calculi; Z98.890 Other specified postprocedural states; Z98.1 Arthrodesis status
CPT/HCPCS: 36415; 80053; 82150; 83605; 83690; 85025; 81001; 87040; 87086; 99284; 96374; 96375 ×2; 96361; J2405; J1885; S0119; J1170

== ENCOUNTER → 2019-08-10 | Outpatient (CLI) | payer MEDICARE, OTHER ==
--- NOTE | 2019-08-10 13:57 | CT ---
EXAMINATION TYPE: CT soft tissue neck wo/w con DATE OF EXAM: 08/10/2019 COMPARISON: None HISTORY: 59-year-old female Lump under chin TECHNIQUE: Contiguous axial scanning of the soft tissues of the neck performed without and with IV Co ntrast, patient injected with 100 mL of Isovue 300. Coronal/sagittal reconstructions performed. CT DLP: 884.10 mGycm Automated exposure control for dose reduction was used. FINDINGS: Visualized intracranial structures, orbits and globes, paranasal sinuses, mastoid air cells appear cl ear. Nasopharynx and oropharynx appear clear. Epiglottis and prevertebral soft tissues appear satisfactory. Glottic and subglottic structures as well as the tracheal column appear clear. Visualized upper lungs show an emphysematous cyst on the right and minimal subpleural parenchymal sca rring. Thyroid gland appears satisfactory. Submandibular glands and parotid glands appear atrophic. Palpable marker placed along the left paramedian submental region where mildly enlarged 1 cm submenta l lymph node is noted. Additional scattered nonenlarged lymph nodes are present on both sides of the neck. Bones: ACDF hardware at C5-C7 levels. Grade 1 anterolisthesis above the ACDF at C4-C5 secondary to h ypertrophic facet arthropathy. IMPRESSION: 1. PALPABLE MARKER BELOW THE CHIN DEMONSTRATES A MILDLY ENLARGED 1 CM SUBMENTAL LYMPH NODE WHICH MAY BE REACTIVE/POST INFLAMMATORY. CLINICAL FOLLOW-UP CAN ENSURE STABILITY/RESOLUTION. IF THERE IS GROWTH OR SUSPICIOUS CLINICAL FEATURES, TISSUE SAMPLING CAN BE CONSIDERED. 2. ATROPHIC SUBMANDIBULAR AND PAROTID GLANDS. 3. MINIMAL EMPHYSEMATOUS CHANGE IN THE UPPER LUNGS.
== END | disposition home or self-care (01) ==
LOC: RADCTMAIN 11:03
PROVIDERS: ATTEND Family Medicine
DX: K11.0 Atrophy of salivary gland (principal); R59.9 Enlarged lymph nodes, unspecified
CPT/HCPCS: 70492; Q9967

== ENCOUNTER → 2019-08-17 | Outpatient (CLI) | payer MEDICARE, OTHER ==
--- NOTE | 2019-08-17 13:39 | XR ---
EXAMINATION TYPE: XR KUB DATE OF EXAM: 08/17/2019 COMPARISON: 07/29/2019 HISTORY: Post lithotripsy TECHNIQUE: One view abdominal series FINDINGS: The osseous structures are intact. The bowel gas pattern is nonspecific. Scoliotic curvature with hy pertrophic multilevel severe degenerative disc disease. There is distended gastric bubble. Air within both large and small bowel loops are seen. Numerous pelvic calcifications are seen bilaterally. The majority which likely are vascular. No definitive renal calculi. IMPRESSION: 1. Numerous pelvic calcifications most likely are vascular correlate clinically.
== END | disposition home or self-care (01) ==
LOC: RADXRMAIN 13:20
PROVIDERS: ATTEND Urology
DX: N20.0 Calculus of kidney (principal)
CPT/HCPCS: 74018

== ENCOUNTER 2019-12-17 14:32 | Emergency (ER) | payer MEDICARE, OTHER ==
[2019-12-17] MEDS ORDERED: SODIUM CHLORIDE 0.9% 1,000 ML IV STA (15:15)
[2019-12-17] MEDS ORDERED: KETOROLAC 30 MG/ML 1 ML VIAL IVP STA (15:15)
--- NOTE | 2019-12-17 15:29 | ED ---
General Adult HPI - General Chief complaint: Back Pain/Injury Stated complaint: Pulled muscle, abd & back pain Time Seen by Provider: 12/17/19 14:55 Source: patient, RN notes reviewed Mode of arrival: ambulatory Limitations: no limitations - History of Present Illness Initial comments: 59-year-old female with a past medical history of asthma, hyperlipidemia, osteoarthritis, hypertension, kidney stones presents to the emergency department for a chief complaint of left flank pain. Patient states that she was shoveling about a week ago. States that she did not feel any pain when swallowing or afterward she started have some left flank pain that radiated to the left upper abdomen. Patient states that it does not seem to go away. States she has had these lidocaine patches that denies any helping. She denies any other abdominal pain besides the radiating pain from her left flank. Denies nausea or vomiting. Denies diarrhea. Denies cough or shortness of breath. Denies chest pain.Patient has no other complaints at this time including shortness of breath, chest pain, abdominal pain, nausea or vomiting, headache, or visual changes. - Related Data Home Medications Medication Instructions Recorded Confirmed Nitroglycerin Sl Tabs [Nitrostat] 0.4 mg PO Q5M PRN 04/28/14 08/01/19 clonazePAM [KlonoPIN] 2 mg PO HS 03/15/16 08/01/19 Albuterol Inhaler [Ventolin Hfa 2 puff INHALATION RT-Q6H PRN 11/19/18 08/01/19 Inhaler] Fluticasone/Vilanterol [Breo 1 puff INHALATION RT-DAILY 11/19/18 08/01/19 Ellipta 100-25 Mcg Inhaler] DULoxetine HCL [Cymbalta] 60 mg PO BID 04/15/19 08/01/19 traZODone HCL 300 mg PO HS 04/15/19 08/01/19 SUMAtriptan SUCCINATE [Imitrex] 6 mg SQ Q8HR PRN 04/16/19 08/01/19 ARIPiprazole [Abilify] 20 mg PO DAILY 07/28/19 08/01/19 Albuterol Nebulized [Ventolin 2.5 mg INHALATION RT-QID PRN 07/28/19 08/01/19 Nebulized] Multivitamins, Thera [Multivitamin 1 tab PO DAILY 07/28/19 08/01/19 (formulary)] Varenicline [Chantix Continuing 1 mg PO BID 07/28/19 08/01/19 Pack] Previous Rx's Medication Instructions Recorded Cephalexin [Keflex] 500 mg PO Q6HR #40 cap 08/01/19 Ondansetron [Zofran ODT] 4 mg PO Q8HR PRN #10 tab 08/01/19 Tamsulosin HCl [Flomax] 0.4 mg PO DAILY #7 cap 08/01/19 Allergies Allergy/AdvReac Type Severity Reaction Status Date / Time amoxicillin [From Augmentin] AdvReac Nausea & Verified 12/17/19 14:51 Vomiting & Diarrhea clavulanic acid AdvReac Nausea & Verified 12/17/19 14:51 [From Augmentin] Vomiting & Diarrhea Review of Systems ROS Statement: Those systems with pertinent positive or pertinent negative responses have been documented in the HPI. ROS Other: All systems not noted in ROS Statement are negative. Past Medical History Past Medical History: Asthma, Chest Pain / Angina, Hyperlipidemia, Osteoarthritis (OA) Additional Past Medical History / Comment(s): HYPOTENSION, possible heart murmur. kidney stones History of Any Multi-Drug Resistant Organisms: None Reported Past Surgical History: Back Surgery, Orthopedic Surgery Additional Past Surgical History / Comment(s): CERVICAL FUSION. RIGHT SHOULDER ROTATOR CUFF SURGERY, PAIN CLINIC PROCEDURES, lithotripsy Past Anesthesia/Blood Transfusion Reactions: No Reported Reaction Additional Past Anesthesia/Blood Transfusion Reaction / Comment(s): UNKNOWN FAMILY HX. Past Psychological History: Anxiety, Depression, Panic Disorder Smoking Status: Former smoker Past Alcohol Use History: Occasional Past Drug Use History: None Reported - Past Family History Father Family Medical History: Cancer Additional Family Medical History / Comment(s): LUNG CANCER. Mother Family Medical History: Unable to Obtain General Exam Limitations: no limitations General appearance: alert, in no apparent distress Head exam: Present: atraumatic, normocephalic, normal inspection Eye exam: Present: normal appearance, PERRL, EOMI. Absent: scleral icterus, conjunctival injection, periorbital swelling ENT exam: Present: normal exam, mucous membranes moist Neck exam: Present: normal inspection, full ROM. Absent: tenderness, meningismus, lymphadenopathy Respiratory exam: Present: normal lung sounds bilaterally. Absent: respiratory distress, wheezes, rales, rhonchi, stridor Cardiovascular Exam: Present: regular rate, normal rhythm, normal heart sounds. Absent: systolic murmur, diastolic murmur, rubs, gallop, clicks GI/Abdominal exam: Present: soft, normal bowel sounds. Absent: distended, tenderness, guarding, rebound, rigid Extremities exam: Present: normal capillary refill (Capillary refill is less than 2 seconds, pulse 2+ in lower extremities bilaterally) Back exam: Present: CVA tenderness (L). Absent: CVA tenderness (R) Neurological exam: Present: alert Psychiatric exam: Present: normal affect, normal mood Course Vital Signs 12/17/19 12/17/19 12/17/19 14:51 18:30 19:06 Temperature 97.8 F 97.2 F L Pulse Rate 85 82 81 Respiratory 18 18 16 Rate Blood Pressure 144/99 179/90 O2 Sat by Pulse 96 98 98 Oximetry - Reevaluation(s) Reevaluation #1: 12/17/19 16:[address] Norris. He recommends we repeat the CT with oral and IV contrast as long as patient is hemodynamically stable. She is stable at this time and has had this pain for a week now. Medical Decision Making - Medical Decision Making 59-year-old female presents to the emergency department for left flank pain. Patient states this started hurting about a week ago after she was shoveling snow. Thinks she pulled a muscle in her back. Patient does have left CVA tenderness. Pain radiates around to the left side of the upper abdomen however is she is nontender in this area. Patient is stable and well-appearing. CBC CMP unremarkable. Urinalysis shows 10 white blood cells with a leukocyte esterase. she denies dysuria. CT abdomen and pelvis without contrast was initially obtained given left flank tenderness and a history of kidney stones. CT abdomen and pelvis without contrast impression shows that there appears to be fluid within the pelvis with higher density than typical ascites. This raises the possibility of hemorrhage. Left kidney has an enlarged over the interval. Underlying mass and pyelonephritis could be considered. Hemorrhage could be considered however this does not appear to track into the pelvis without any perinephric stranding. Dr. Norris recommended CT with IV contrast as well as oral contrast. This showed posterior subcapsular fluid collection on the left kidney that could relate to hematoma with some mass effect upon the posterior cortex. There is localized cortical ischemia and decreased function on the delayed images. Renal abnormality appears new compared to old exam. Dr. De La Rosa Spoke with Dr. Perez who recommends speaking with urology. Dr. De La Rosa spoke with Dr. Oliveira who states that it could be secondary to the lithotripsy she received in July or an incidental finding. Recommends follow-up with primary care. Patient discharged home. She'll return if she has any worsening symptoms. Discussed taking Tylenol for pain - Lab Data Result diagrams: 12/17/19 15:39 12/17/19 15:39 Lab Results 12/17/19 12/17/19 12/17/19 Range/Units 15:28 15:39 15:39 WBC 5.6 (3.8-10.6) k/uL RBC 4.93 (3.80-5.40) m/uL Hgb 15.1 (11.4-16.0) gm/dL Hct 45.7 (34.0-46.0) % MCV 92.8 (80.0-100.0) fL MCH 30.6 (25.0-35.0) pg MCHC 33.0 (31.0-37.0) g/dL RDW 13.5 (11.5-15.5) % Plt Count 311 (150-450) k/uL Neutrophils % 59 % Lymphocytes % 26 % Monocytes % 7 % Eosinophils % 4 % Basophils % 3 % Neutrophils # 3.3 (1.3-7.7) k/uL Lymphocytes # 1.4 (1.0-4.8) k/uL Monocytes # 0.4 (0-1.0) k/uL Eosinophils # 0.2 (0-0.7) k/uL Basophils # 0.2 (0-0.2) k/uL Sodium 139 (137-145) mmol/L Potassium 4.8 (3.5-5.1) mmol/L Chloride 107 (98-107) mmol/L Carbon Dioxide 26 (22-30) mmol/L Anion Gap 6 mmol/L BUN 13 (7-17) mg/dL Creatinine 0.62 (0.52-1.04) mg/dL Est GFR (CKD-EPI)AfAm >90 (>60 ml/min/1.73 sqM) Est GFR (CKD-EPI)NonAf >90 (>60 ml/min/1.73 sqM) Glucose 95 (74-99) mg/dL Calcium 9.8 (8.4-10.2) mg/dL Total Bilirubin 1.0 (0.2-1.3) mg/dL AST 49 H (14-36) U/L ALT 19 (4-34) U/L Alkaline Phosphatase 74 (38-126) U/L Total Protein 8.0 (6.3-8.2) g/dL Albumin 4.6 (3.5-5.0) g/dL Amylase 84 (30-110) U/L Lipase 265 (23-300) U/L Urine Color Yellow Urine Appearance Clear (Clear) Urine pH 6.0 (5.0-8.0) Ur Specific [place] 1.010 (1.001-1.035) Urine Protein Negative (Negative) Urine Glucose (UA) Negative (Negative) Urine Ketones Negative (Negative) Urine Blood Negative (Negative) Urine Nitrite Negative (Negative) Urine Bilirubin Negative (Negative) Urine Urobilinogen <2.0 (<2.0) mg/dL Ur Leukocyte Esterase Large H (Negative) Urine RBC 1 (0-5) /hpf Urine WBC 10 H (0-5) /hpf Ur Squamous Epith Cells <1 (0-4) /hpf Urine Bacteria Rare H (None) /hpf Urine Mucus Rare H (None) /hpf - Radiology Data Radiology results: report reviewed, image reviewed Disposition Clinical Impression: Back pain Disposition: HOME SELF-CARE Condition: Good Instructions (If sedation given, give patient instructions): Flank Pain (ED) Additional Instructions: Please take Tylenol for pain. Follow-up with primary care or your urologist next week. If you have any worsening symptoms return here to the emergency department. Is patient prescribed a controlled substance at d/c from ED?: No Referrals: Pati Mims MD [STAFF PHYSICIAN] - 1-2 days Carolyn Arellano MD [STAFF PHYSICIAN] - 1-2 days Elgin Aden MD [STAFF PHYSICIAN] - 1-2 days Time of Disposition: 19:38
[2019-12-17 15:42] LABS: Appearance,Urine Clear (Clear); Bacteria,Urine Rare /hpf; Bilirubin,Urine Negative (Negative); Blood,Urine Negative (Negative); Color,Urine Yellow; Glucose,Urine (UA) Negative (Negative); Ketones,Urine Negative (Negative); Leukocyte Esterase,Urine Large (Negative); Mucus,Urine Rare /hpf; Nitrite,Urine Negative (Negative); Protein,Urine Negative (Negative); RBC,Urine 1 /hpf (0-5); Squamous Epithelial Cell,Urine <1 /hpf (0-4); Urobilinogen,Urine <2.0 mg/dL (<2.0); WBC,Urine 10 /hpf (0-5)
[2019-12-17 15:49] LABS: Basophils # (A) 0.2 k/uL (0-0.2); Basophils % (A) 3 %; Eosinophils # (A) 0.2 k/uL (0-0.7); Eosinophils % (A) 4 %; HCT 45.7 % (34.0-46.0); HGB 15.1 gm/dL (11.4-16.0); Lymphocytes # (A) 1.4 k/uL (1.0-4.8); Lymphocytes % (A) 26 %; MCH 30.6 pg (25.0-35.0); MCV 92.8 fL (80.0-100.0); Mean Platelet Volume 7.6; Monocytes # (A) 0.4 k/uL (0-1.0); Monocytes % (A) 7 %; Neutrophils # (A) 3.3 k/uL (1.3-7.7); Neutrophils % (A) 59 %; Platelet Count 311 k/uL (150-450); RBC 4.93 m/uL (3.80-5.40); RDW 13.5 % (11.5-15.5); WBC 5.6 k/uL (3.8-10.6)
[2019-12-17 15:58] LABS: ALT 19 U/L (4-34); AST 49 U/L (14-36); African American GFR (CKD) >90 (>60 ml/min/1.73 sqM); Albumin 4.6 g/dL (3.5-5.0); Alkaline Phosphatase 74 U/L (38-126); Amylase 84 U/L (30-110); Anion Gap 6 mmol/L; Blood Urea Nitrogen 13 mg/dL (7-17); Calcium 9.8 mg/dL (8.4-10.2); Carbon Dioxide 26 mmol/L (22-30); Chloride 107 mmol/L (98-107); Glucose 95 mg/dL (74-99); Non-African American GFR(CKD) >90 (>60 ml/min/1.73 sqM); Sodium 139 mmol/L (137-145)
--- NOTE | 2019-12-17 15:58 | XR ---
EXAMINATION TYPE: XR chest 2V DATE OF EXAM: 12/17/2019 COMPARISON: 11/17/2011 TECHNIQUE: PA and lateral views submitted. HISTORY: Pain FINDINGS: The lungs are clear and there is no pneumothorax, pleural effusion, or focal pneumonia. Hyperinflat ion suggests COPD. Hypertrophic change of the spine noted. No compression deformities. No overt failu re. Postsurgical change overlying the cervical spine. There is be soft tissue overlap overlying the l ateral right rib cage. IMPRESSION: 1. No acute process.
[2019-12-17 15:59] LABS: Potassium 4.8 mmol/L (3.5-5.1)
[2019-12-17] MEDS ORDERED: IOPAMIDOL CONTRAST (ORAL USE) VIAL PO PRN (16:56)
--- NOTE | 2019-12-17 16:59 | CT ---
EXAMINATION TYPE: CT abdomen pelvis wo con DATE OF EXAM: 12/17/2019 COMPARISON: 07/08/2019 INDICATION: Left flank pain DLP: 318.1 mGycm, Automated exposure control for dose reduction was used. CONTRAST: No IV contrast Study performed without Oral Contrast TECHNIQUE: Axial images were obtained from above the diaphragm to the pubic rami in the axial plane a t 5 mm thick sections. Reconstructed images are reviewed on the computer in the coronal plane. FINDINGS: Limited CT sections are obtained the lung bases. The lung bases are clear. No pleural effusions are evident. CT ABDOMEN: There appears to be a change in the appearance of the left kidney which is enlarged and h as a somewhat hypodense area along the posterior mid margin. This is a change from the prior CT exami [facility]. Consider mass. The density is slightly increased and nephritis could be considered. There is some increased dense fluid within the pelvis. Consider the possibility hemorrhage. No extension from the kidney however is evident. There is little abdominal fat and significant perinephric stranding is not identified. Consider ultrasound for additional evaluation. Liver: Normal Spleen: Normal Pancreas: Normal Adrenal glands: The adrenal glands are normal. Gallbladder: Normal Kidneys: There is fullness within the left kidney compared to the right. This is an interval change f rom the previous examination. Mass and underlying infection could be considered. Significant perineph kristen stranding around the left is not identified. The renal pelvis appears to be extrarenal. Hydrouret er is not clearly identified. There is a calcification within the left hemipelvis, series 202 image 4 8. Confirmation of a ureteral stone however is not evident. Aorta: Vascular calcification is within the aorta. Separation of the aorta from other adjacent struc tures is difficult due to lack of abdominal fat. Inferior vena cava: Normal. CT PELVIS: No discrete abnormality within the bowel structures is evident. There is a large fecal bolus at the l evel the rectum. Dilated colon is not evident. Appendix: Not identified Urinary bladder: Unremarkable Genitourinary structures: Uterus and ovaries are not clearly identified. There appears to be some flu id within the pelvis. This is greater density than the fluid within small bowel loops. Hemorrhage is not excluded. Osseous structures: No suspicious lytic or sclerotic lesions. Report was called case discussed with the emergency room HANSA Norris by telephone [phone] emmanuel rs 12/17/2019. At the time of discussion the patient was hemodynamically stable and complaining of lef t flank pain for one week. Alternatives for workup include ultrasound of the abdomen with additional evaluation of the pelvis for fluid. Contrast CT abdomen pelvis including oral contrast if possible co uld also further evaluate and may aid in evaluation of the left kidney, ureter, and pelvic fluid. IMPRESSIONS: 1. There appears to be fluid within the pelvis higher density than typical ascites. This raises the possibility of hemorrhage. A source is not identified. 2. Left kidney has enlarged over the interval. Underlying mass, and pyelonephritis could be considere d. Hemorrhage could be considered however, this does not appear to track into the pelvis without any perinephric stranding. Lack of perinephric stranding also suggest pyelonephritis less likely within t he differential. 3. No definite renal or ureteral calcifications. Ureter however cannot be reliably retracted to the u rinary bladder causing limitation.
--- NOTE | 2019-12-17 19:01 | CT ---
EXAMINATION TYPE: CT abdomen pelvis w con DATE OF EXAM: 12/17/2019 COMPARISON: 12/17/2019 and 07/08/2019 HISTORY: Abdominal pain, abnormal without study CT DLP: 557.7 mGycm Automated exposure control for dose reduction was used. CONTRAST: Performed with IV Contrast, patient injected with 100 mL of Isovue 300. There is mild subsegmental atelectasis at the left lung base. Heart size is fairly normal. Liver spleen stomach appear normal. There is no evidence of pancreatic mass. Gallbladder appears norm al. Bile ducts are not dilated. There is no adrenal mass. There is subcapsular fluid collection on the posterior left kidney that measures 3.5 x 2 cm. There is decreased cortical enhancement on the delayed images adjacent to the fluid. There is no retroperitoneal adenopathy. There is no evidence of a bowel obstruction. Bladder distends smoothly. There is retained fecal material in the rectum. There is no inguinal hernia. There is no f ree fluid in the pelvis. Uterus is anteverted. There is no pelvic mass. Appendix is not definitely se en. There is no sign of thickened appendix. There is multilevel spondylotic change in the lumbar spine with mild subluxation of L3 to the right o f L4. There is no compression fracture. Bony pelvis appears intact. There is moderate disc space narr owing at L3-4 L4-5. IMPRESSION: No evidence of appendicitis. No evidence of a bowel obstruction. Posterior subcapsular fluid collection on the left kidney could relate to hematoma with some mass eff ect upon the posterior cortex. There is localized cortical ischemia and decreased function on the del ayed images. Renal abnormality appears new compared to old exam. There is clearing of the left renal calculus compared to old exam.
[2019-12-17 19:07] VITALS: BP 179/90; PULSE 81; RESP 16; TEMP 97.2
[2019-12-17] MEDS ORDERED: ACET/COD 300 MG/30 MG STARTER PACK 6 TAB BTL PO STA (19:48)
== END 2019-12-17 19:54 | disposition home or self-care (01) ==
LOC: EC 14:32
DX: M54.9 Dorsalgia, unspecified (principal); J45.909 Unspecified asthma, uncomplicated; I10 Essential (primary) hypertension; F41.0 Panic disorder [episodic paroxysmal anxiety]; F32.9 Major depressive disorder, single episode, unspecified; Z79.51 Long term (current) use of inhaled steroids; Z79.899 Other long term (current) drug therapy; Z88.0 Allergy status to penicillin; Z88.1 Allergy status to other antibiotic agents; Z87.891 Personal history of nicotine dependence; Z98.1 Arthrodesis status
CPT/HCPCS: 36415; 80053; 82150; 83690; 85025; 81001; 87086; 71046; 74176; 74177; 99284; J1885; Q9967

== ENCOUNTER 2020-06-10 21:41 | Observation (INO) | payer MEDICARE, OTHER ==
[2020-06-10] MEDS ORDERED: ONDANSETRON 4 MG/2 ML VIAL IVP STA (22:26)
[2020-06-10] MEDS ORDERED: HYDROmorphone 0.5 MG/0.5 ML SYRINGE IVP STA (22:26)
[2020-06-10 22:34] LABS: Basophils # (A) 0.1 k/uL (0-0.2); Basophils % (A) 1 %; Eosinophils # (A) 0.3 k/uL (0-0.7); Eosinophils % (A) 2 %; HCT 45.9 % (34.0-46.0); HGB 14.9 gm/dL (11.4-16.0); Lymphocytes # (A) 3.2 k/uL (1.0-4.8); Lymphocytes % (A) 25 %; MCH 31.3 pg (25.0-35.0); MCHC 32.6 g/dL (31.0-37.0); MCV 96.2 fL (80.0-100.0); Mean Platelet Volume 7.2; Monocytes # (A) 0.8 k/uL (0-1.0); Monocytes % (A) 6 %; Neutrophils % (A) 64 %; Platelet Count 311 k/uL (150-450); RBC 4.77 m/uL (3.80-5.40); RDW 12.9 % (11.5-15.5); WBC 12.6 k/uL (3.8-10.6)
[2020-06-10 22:43] LABS: ALT 19 U/L (4-34); AST 39 U/L (14-36); African American GFR (CKD) >90 (>60 ml/min/1.73 sqM); Albumin 4.9 g/dL (3.5-5.0); Alkaline Phosphatase 80 U/L (38-126); Anion Gap 8 mmol/L; Blood Urea Nitrogen 15 mg/dL (7-17); Calcium 9.8 mg/dL (8.4-10.2); Carbon Dioxide 28 mmol/L (22-30); Chloride 103 mmol/L (98-107); Glucose 108 mg/dL (74-99); Non-African American GFR(CKD) 85 (>60 ml/min/1.73 sqM); Potassium 3.9 mmol/L (3.5-5.1); Sodium 139 mmol/L (137-145); Total Bilirubin 0.5 mg/dL (0.2-1.3); Total Protein 7.7 g/dL (6.3-8.2)
[2020-06-10 22:44] LABS: INR 0.9 (<1.2); Partial Thromboplastin Time 23.1 sec (22.0-30.0); Prothrombin Time 9.4 sec (9.0-12.0)
--- NOTE | 2020-06-10 23:05 | CT ---
EXAMINATION TYPE: CT abdomen pelvis w con DATE OF EXAM: 06/10/2020 COMPARISON: 12/17/2019 HISTORY: vag bleed Vaginal tear CT DLP: 513.5 mGycm Automated exposure control for dose reduction was used. CONTRAST: Performed with IV Contrast, patient injected with 100 mL of Isovue 300. Images obtained from the diaphragm to the floor the pelvis with IV contrast. FINDINGS: There is minimal subsegmental atelectasis at the lung bases. There is no pleural effusion. There is i nterposition of the hepatic flexure of the colon which is a normal variant. Liver shows no focal defe ct. Spleen is intact. There is no evidence of pancreatic mass. The stomach is intact. There is mild e ctasia of the pancreatic duct that measures up to 5 mm. There is no sign of pancreatic mass. There is no adrenal mass. Kidneys show satisfactory contrast opacification. There is no hydronephrosi s. There is some deformity of the left kidney on the posterior cortex. I see no definite renal mass. I see no evidence of a renal calculus. The ureters are not dilated. Delayed images show decreased cor tical enhancement of the interpolar posterior left kidney. I see no suspicious renal mass. There is no retroperitoneal adenopathy. There is minimal atheromatous change in the abdominal aorta. Ureters are not dilated. Bladder distends smoothly. There is no inguinal hernia. The bony pelvis appe ars intact. There is multilevel spondylotic changes in the lower lumbar spine with vacuum disc and di sc space narrowing from L2 to S1. There is a slight lumbar levoscoliosis and thoracolumbar dextroscol iosis. There is mild lateral subluxation of L3 to the right of L4. The appendix is not seen. There is no sign of thickened appendix. Uterus is anteverted. There appears to be large amount of fecal material in the vagina. This measures 6 x 3 cm. I see no evidence of pneumoperitoneum. There is no ascites. There is no mesenteric edema. There is no evidence of a bowel obstruction. IMPRESSION: There is fecal material in the pelvis that appears to be in the vagina which is a change compared to old exam. This is consistent with a rectovaginal fistula. Correlation with the physical exam recommen ded. No free air. Lumbar multilevel spondylotic changes. No bowel obstruction. Deformity of the left kidney with low-attenuation in the subcutaneous cortical posterior interpolar l eft kidney could relate to old trauma. There is abnormal decreased cortical enhancement on the delaye d images and decreased function is suspected in the interpolar posterior left kidney. Low-attenuation on the posterior left kidney could be a chronic subcapsular hematoma and appears smaller than old CT scan.
--- NOTE | 2020-06-11 00:03 | ED ---
General Adult HPI - General Chief complaint: Vaginal Bleeding Stated complaint: heavy vaginal bleeding/clots Time Seen by Provider: 06/10/20 21:53 Source: patient Mode of arrival: ambulatory Limitations: no limitations - History of Present Illness Initial comments: 60-year-old female patient presents to the emergency department today for evaluation of heavy vaginal bleeding with passage of large clots. Patient states this started around 5 PM after she had sexual intercourse with her significant other. Patient does admit to using a sex toy for the first time. Patient denies any pain during intercourse. She states that she doesn't currently have some lower abdominal cramping and aching. Denies any hematuria, dysuria, urinary frequency, urinary urgency prior to the onset of the bleeding. Denies any hematochezia or melena. Denies any nausea or vomiting. Denies fever or chills. Patient denies any recent rash, cough, shortness of breath, chest pain, diarrhea, constipation, back pain, numbness, tingling, dizziness, weakness, headache, visual changes, or any other complaints. - Related Data Home Medications Medication Instructions Recorded Confirmed Nitroglycerin Sl Tabs [Nitrostat] 0.4 mg PO Q5M PRN 04/28/14 08/01/19 clonazePAM [KlonoPIN] 2 mg PO HS 03/15/16 08/01/19 Albuterol Inhaler (Mhu) [Ventolin 2 puff INHALATION RT-Q6H PRN 11/19/18 08/01/19 Hfa Inhaler (Mhu)] Fluticasone/Vilanterol [Breo 1 puff INHALATION RT-DAILY 11/19/18 08/01/19 Ellipta 100-25 Mcg Inhaler] DULoxetine HCL [Cymbalta] 60 mg PO BID 04/15/19 08/01/19 traZODone HCL 300 mg PO HS 04/15/19 08/01/19 SUMAtriptan SUCCINATE [Imitrex] 6 mg SQ Q8HR PRN 04/16/19 08/01/19 ARIPiprazole [Abilify] 20 mg PO DAILY 07/28/19 08/01/19 Albuterol Nebulized [Ventolin 2.5 mg INHALATION RT-QID PRN 07/28/19 08/01/19 Nebulized] Multivitamins, Thera [Multivitamin 1 tab PO DAILY 07/28/19 08/01/19 (formulary)] Varenicline [Chantix Continuing 1 mg PO BID 07/28/19 08/01/19 Pack] Previous Rx's Medication Instructions Recorded Cephalexin [Keflex] 500 mg PO Q6HR #40 cap 08/01/19 Ondansetron [Zofran ODT] 4 mg PO Q8HR PRN #10 tab 08/01/19 Tamsulosin HCl [Flomax] 0.4 mg PO DAILY #7 cap 08/01/19 Allergies Allergy/AdvReac Type Severity Reaction Status Date / Time amoxicillin [From Augmentin] AdvReac Nausea & Verified 06/10/20 21:48 Vomiting & Diarrhea clavulanic acid AdvReac Nausea & Verified 06/10/20 21:48 [From Augmentin] Vomiting & Diarrhea Review of Systems ROS Statement: Those systems with pertinent positive or pertinent negative responses have been documented in the HPI. ROS Other: All systems not noted in ROS Statement are negative. Past Medical History Past Medical History: Asthma, Chest Pain / Angina, Hyperlipidemia, Osteoarthritis (OA) Additional Past Medical History / Comment(s): HYPOTENSION, possible heart murmur. kidney stones History of Any Multi-Drug Resistant Organisms: None Reported Past Surgical History: Back Surgery, Orthopedic Surgery Additional Past Surgical History / Comment(s): CERVICAL FUSION. RIGHT SHOULDER ROTATOR CUFF SURGERY, PAIN CLINIC PROCEDURES, lithotripsy Past Anesthesia/Blood Transfusion Reactions: No Reported Reaction Additional Past Anesthesia/Blood Transfusion Reaction / Comment(s): UNKNOWN FAMILY HX. Past Psychological History: Anxiety, Depression, Panic Disorder Smoking Status: Current every day smoker Past Alcohol Use History: Occasional Past Drug Use History: None Reported - Past Family History Father Family Medical History: Cancer Additional Family Medical History / Comment(s): LUNG CANCER. Mother Family Medical History: Unable to Obtain General Exam Limitations: no limitations General appearance: alert, in no apparent distress, other (This is a well- developed, well-nourished adult female patient in no acute distress. Vital signs upon presentation are temperature 98.2F, pulse 122, respirations 18, blood pressure 131/85, pulse ox 96% on room air.) Neck exam: Present: normal inspection. Absent: tenderness, meningismus, lymphadenopathy Respiratory exam: Present: normal lung sounds bilaterally. Absent: respiratory distress, wheezes, rales, rhonchi, stridor Cardiovascular Exam: Present: regular rate, normal rhythm, normal heart sounds. Absent: systolic murmur, diastolic murmur, rubs, gallop, clicks GI/Abdominal exam: Present: soft, normal bowel sounds. Absent: distended, tenderness, guarding, rebound, rigid External exam: Present: normal external exam Speculum exam: Present: laceration (There is a large 5 cm laceration noted to the right lateral vaginal wall and over the inferior vaginal wall. ), other (There is active bleeding noted. There was passage of a large blood clot the size of my fist. ). Absent: normal speculum exam Neurological exam: Present: alert, oriented X3, CN II-XII intact Psychiatric exam: Present: normal affect, normal mood Skin exam: Present: warm, dry, intact, normal color. Absent: rash Course Vital Signs 06/10/20 06/10/20 06/10/20 21:45 23:10 23:16 Temperature 98.2 F Pulse Rate 122 H 72 Respiratory 18 16 Rate Blood Pressure 131/85 116/86 O2 Sat by Pulse 96 87 L 94 L Oximetry Medical Decision Making - Medical Decision Making 60-year-old female patient presented to the emergency department today for evaluation of heavy vaginal bleeding and passage of large clots. This started after sexual intercourse with use of a large sex toy around 5pm. Physical examination did reveal a 5cm laceration to the right lateral and inferior vaginal wall. This did exhibit active bleeding. I did pack the vagina with kerlix to control bleeding. Patients v/s remained stable. Labs reviewed and s howed normal hemoglobin. CT abdomen and pelvis was obtained and showed no evidence for free air. It did show fecal material in the vagina however this is most likely the packing I placed into the vagina prior to the CT. There was no evidence for stool in the vaginal during the speculum exam. I discussed the case with Dr. Walter who will be taking patient to a large repair the tear this evening. I did discuss findings with also the patient. She is agreeable to plan. - Lab Data Result diagrams: 06/10/20 22:27 06/10/20 22:27 Lab Results 06/10/20 06/10/20 06/10/20 Range/Units 22:27 22:27 22:27 WBC 12.6 H (3.8-10.6) k/uL RBC 4.77 (3.80-5.40) m/uL Hgb 14.9 (11.4-16.0) gm/dL Hct 45.9 (34.0-46.0) % MCV 96.2 (80.0-100.0) fL MCH 31.3 (25.0-35.0) pg MCHC 32.6 (31.0-37.0) g/dL RDW 12.9 (11.5-15.5) % Plt Count 311 (150-450) k/uL Neutrophils % 64 % Lymphocytes % 25 % Monocytes % 6 % Eosinophils % 2 % Basophils % 1 % Neutrophils # 8.0 H (1.3-7.7) k/uL Lymphocytes # 3.2 (1.0-4.8) k/uL Monocytes # 0.8 (0-1.0) k/uL Eosinophils # 0.3 (0-0.7) k/uL Basophils # 0.1 (0-0.2) k/uL PT 9.4 (9.0-12.0) sec INR 0.9 (<1.2) APTT 23.1 (22.0-30.0) sec Sodium 139 (137-145) mmol/L Potassium 3.9 (3.5-5.1) mmol/L Chloride 103 (98-107) mmol/L Carbon Dioxide 28 (22-30) mmol/L Anion Gap 8 mmol/L BUN 15 (7-17) mg/dL Creatinine 0.76 (0.52-1.04) mg/dL Est GFR (CKD-EPI)AfAm >90 (>60 ml/min/1.73 sqM) Est GFR (CKD-EPI)NonAf 85 (>60 ml/min/1.73 sqM) Glucose 108 H (74-99) mg/dL Calcium 9.8 (8.4-10.2) mg/dL Total Bilirubin 0.5 (0.2-1.3) mg/dL AST 39 H (14-36) U/L ALT 19 (4-34) U/L Alkaline Phosphatase 80 (38-126) U/L Total Protein 7.7 (6.3-8.2) g/dL Albumin 4.9 (3.5-5.0) g/dL - Radiology Data Radiology results: report reviewed, image reviewed Disposition Clinical Impression: Vaginal laceration Disposition: ADMITTED IP TO THIS [facility] Condition: Serious Referrals: None,Stated [Primary Care Provider] - 1-2 days Decision to Admit Reason: Admit from EC Decision Date: 06/11/20 Decision Time: 00:02
--- NOTE | 2020-06-11 00:05 | P.HPOB ---
History of Present Illness H&P Date: 06/11/20 Chief Complaint: Acute vaginal bleeding The patient is a 60-year-old 2 para 2001 presented to the emergency room this evening after sex at which time a toy of some sort was used after which time she began having acute vaginal bleeding. Examination the emergency room by the physician's railway yard assistant demonstrated a very large vaginal apical laceration which was acutely bleeding. The wound was packed and I was called to come evaluate. The patient reports no other apparent obstetrical or gynecological concerns. Obstetrical history: 2 para 2001 with 2 term vaginal deliveries without complications. Gynecologic history: Unremarkable with no history of recent infections to include STDs. Review of Systems Review of systems is confined to history of present illness. Past Medical History Past Medical History: Asthma, Chest Pain / Angina, Hyperlipidemia, Osteoarthritis (OA) Additional Past Medical History / Comment(s): HYPOTENSION, possible heart murmur. kidney stones History of Any Multi-Drug Resistant Organisms: None Reported Past Surgical History: Back Surgery, Orthopedic Surgery Additional Past Surgical History / Comment(s): CERVICAL FUSION. RIGHT SHOULDER ROTATOR CUFF SURGERY, PAIN CLINIC PROCEDURES, lithotripsy Past Anesthesia/Blood Transfusion Reactions: No Reported Reaction Additional Past Anesthesia/Blood Transfusion Reaction / Comment(s): UNKNOWN FAMILY HX. Past Psychological History: Anxiety, Depression, Panic Disorder Smoking Status: Current every day smoker Past Alcohol Use History: Occasional Past Drug Use History: None Reported - Past Family History Father Family Medical History: Cancer Additional Family Medical History / Comment(s): LUNG CANCER. Mother Family Medical History: Unable to Obtain Medications and Allergies Home Medications Medication Instructions Recorded Confirmed Type Nitroglycerin Sl Tabs [Nitrostat] 0.4 mg PO Q5M PRN 04/28/14 08/01/19 History clonazePAM [KlonoPIN] 2 mg PO HS 03/15/16 08/01/19 History Albuterol Inhaler (Mhu) [Ventolin 2 puff INHALATION RT-Q6H PRN 11/19/18 08/01/19 History Hfa Inhaler (Mhu)] Fluticasone/Vilanterol [Breo 1 puff INHALATION RT-DAILY 11/19/18 08/01/19 History Ellipta 100-25 Mcg Inhaler] DULoxetine HCL [Cymbalta] 60 mg PO BID 04/15/19 08/01/19 History traZODone HCL 300 mg PO HS 04/15/19 08/01/19 History SUMAtriptan SUCCINATE [Imitrex] 6 mg SQ Q8HR PRN 04/16/19 08/01/19 History ARIPiprazole [Abilify] 20 mg PO DAILY 07/28/19 08/01/19 History Albuterol Nebulized [Ventolin 2.5 mg INHALATION RT-QID PRN 07/28/19 08/01/19 History Nebulized] Multivitamins, Thera [Multivitamin 1 tab PO DAILY 07/28/19 08/01/19 History (formulary)] Varenicline [Chantix Continuing 1 mg PO BID 07/28/19 08/01/19 History Pack] Cephalexin [Keflex] 500 mg PO Q6HR #40 cap 08/01/19 Rx Ondansetron [Zofran ODT] 4 mg PO Q8HR PRN #10 tab 08/01/19 Rx Tamsulosin HCl [Flomax] 0.4 mg PO DAILY #7 cap 08/01/19 Rx Allergies Allergy/AdvReac Type Severity Reaction Status Date / Time amoxicillin [From Augmentin] AdvReac Nausea & Verified 06/10/20 21:48 Vomiting & Diarrhea clavulanic acid AdvReac Nausea & Verified 06/10/20 21:48 [From Augmentin] Vomiting & Diarrhea Exam Vital Signs Temp Pulse Resp BP Pulse Ox 06/10/20 23:16 94 L 06/10/20 23:10 72 16 116/86 87 L 06/10/20 21:45 98.2 F 122 H 18 131/85 96 Intake and Output 06/10/20 06/10/20 06/11/20 14:59 22:59 06:59 Other: Weight 54.431 kg In general, this is a well-developed, well-nourished but thin white female in no acute distress. Her heart has a regular rhythm and rate without apparent murmur. Her lungs are clear to auscultation bilaterally in all grant. Her abdomen is nondistended, soft, nontender, without any palpable masses, hepatosplenomegaly, or hernias. Her extremities are without any cyanosis, clubbing, or edema and are nontender to palpation bilaterally. Vaginal examination is deferred to the operating room as the vagina is currently packed to decrease ongoing bleeding. Results Result Diagrams: 06/10/20 22:27 06/10/20 22:27 Abnormal Lab Results - Last 24 Hours (Table) 06/10/20 06/10/20 Range/Units 22:27 22:27 WBC 12.6 H (3.8-10.6) k/uL Neutrophils # 8.0 H (1.3-7.7) k/uL Glucose 108 H (74-99) mg/dL AST 39 H (14-36) U/L Assessment and Plan (1) Traumatic vaginal laceration Current Visit: Yes Status: Acute Code(s): S31.41XA - LACERATION W/O FOREIGN BODY OF VAGINA AND VULVA, INIT ENCNTR SNOMED Code(s): 505105964 Plan: The patient will be taken to the operating room as I am relatively certain repair in the emergency room will be difficult and ineffective. Under anesthesia, better exposure can be created and laceration more thoroughly evaluated and managed. The risks and complications of vaginal laceration repair been discussed with the patient which primarily include the risk for bleeding, bleeding occurring transfusion though unlikely, and injury to local structures depending on the depth of laceration. She is understood this and agreed to proceed.
[2020-06-11] MEDS ORDERED: fentaNYL (PF) 50 MCG/ML 2 ML AMP ONE (00:30)
[2020-06-11] MEDS ORDERED: MIDAZOLAM 2 MG/2 ML VIAL ONE (00:30)
[2020-06-11] MEDS ORDERED: PROPOFOL 10 MG/ML 20 ML VIAL IV ONE (00:30)
[2020-06-11] MEDS ORDERED: LIDOCAINE 1% INJ 10MG/ML (20 ML MDV) ONE (00:30)
[2020-06-11] MEDS ORDERED: ePHEDrine SULFATE/0.9% NACL/PF 50 MG/5 ML SYRINGE IV ONE (00:30)
[2020-06-11] MEDS ORDERED: ONDANSETRON 4 MG/2 ML VIAL IVP PRN (00:32)
[2020-06-11] MEDS ORDERED: fentaNYL (PF) 50 MCG/ML 2 ML AMP IV PRN (00:32)
[2020-06-11] MEDS ORDERED: LACTATED RINGERS 1,000 ML IV ONE (00:33)
[2020-06-11] MEDS ORDERED: BACITRACIN ZINC 500 UNIT/GM OINT 28.4 GM TUBE TOPICAL ONE (01:01)
[2020-06-11] MEDS ORDERED: IBUPROFEN 600 MG TAB PO PRN (01:05)
--- NOTE | 2020-06-11 01:10 | P.OP ---
Date of Procedure: 06/11/20 Preoperative Diagnosis: #1. Traumatic vaginal laceration with acute bleeding Postoperative Diagnosis: Same Procedure(s) Performed: #1. Repair of vaginal laceration Anesthesia: other (Gen. by LMA) Surgeon: Judson Walter Estimated Blood Loss (ml): 10 IV fluids (ml): 400 Urine output (ml): 75 Pathology: none sent Condition: stable Disposition: PACU Operative Findings: Examination under anesthesia demonstrated a fairly gaping vaginal laceration at the cervicovaginal junction from approximately 5:00 on the cervical clock face to 10:00 on the cervical clock face which is open to a depth of perhaps 3-4 mm and gaping with mild ongoing bleeding. During prep, the initial pack was removed and was significantly soaked with blood in approximately 100 mL of clot was removed. Description of Procedure: The patient was prepped and draped in usual fashion after general anesthesia was administered by the anesthesiologist. A weighted speculum was placed and the apex of the vagina examined with the laceration as noted above from approximately 5:00 to 10:00 at the cervical vaginal junction encircling the margin of the cervix. It was gaping to some extent and losing at this time though not actively or heavily bleeding. The cervix was grasped with a single- tooth tenaculum allowing manipulation. The laceration was closed from 10:00 to 5:00 along the margin of the laceration with a running locking stitch of 2-0 Vicryl without difficulty. Hemostasis appeared to be excellent. The bladder was drained of approximate 75 mL of clear joshua urine. The vagina was then packed with one-inch iodophor gauze covered with bacitracin ointment. All sponge, instrument, needle counts were correct. Estimated blood loss for the case itself was 10 mL or less. There were no complications. The patient tolerated the procedure well and proceeded to the recovery room in stable condition.
[2020-06-11 07:30] VITALS: BP 127/79; PULSE 81; RESP 18; TEMP 97.8
[2020-06-11 07:32] LABS: Basophils % (A) 0 %; Eosinophils # (A) 0.2 k/uL (0-0.7); Eosinophils % (A) 2 %; HCT 33.6 % (34.0-46.0); Lymphocytes # (A) 1.3 k/uL (1.0-4.8); Lymphocytes % (A) 15 %; MCH 32.5 pg (25.0-35.0); MCHC 33.8 g/dL (31.0-37.0); MCV 96.3 fL (80.0-100.0); Mean Platelet Volume 7.1; Monocytes # (A) 0.6 k/uL (0-1.0); Monocytes % (A) 7 %; Neutrophils # (A) 6.7 k/uL (1.3-7.7); Neutrophils % (A) 75 %; Platelet Count 221 k/uL (150-450); RBC 3.49 m/uL (3.80-5.40); WBC 8.9 k/uL (3.8-10.6)
[2020-06-11 07:36] LABS: HGB 11.3 gm/dL (11.4-16.0)
[2020-06-11 12:43] VITALS: BMI 18.8
--- NOTE | 2020-06-11 13:16 | P.DS ---
Providers Date of admission: 06/11/20 01:03 Expected date of discharge: 06/11/20 Attending physician: Judson Walter Primary care physician: Stated None - Discharge Diagnosis(es) (1) Traumatic vaginal laceration Current Visit: Yes Status: Acute Hospital Course: The patient is a 60-year-old 2 para 2 who presented to the emergency room with acute vaginal bleeding after sexual relations with a partner and the use of a toy and was found to have a fairly large vaginal laceration. It was not amenable to being treated with local anesthetic in the emergency department. As result she was taken to the operating room where she was found to have a gaping laceration at the cervicovaginal junction around the margin of the cervix from approximately 5:00 to 10:00. This was closed in standard fashion with a running locking stitch of 2-0 Vicryl with excellent hemostasis. The vagina wasn't packed overnight and removed this morning. There is been no ongoing bleeding and the patient is otherwise asymptomatic, denies any ongoing spotting or pain and is otherwise tolerating a regular diet. She has been deemed stable for discharge on day of surgery and is discharged home to follow-up in the office in 2 weeks routinely. She is to call for any significantly increased bleeding, fever, pain, or any other concerning findings. I have instructed to have nothing in the vagina for at least 4 weeks time to include intercourse. She understood her instructions and agrees follow up as noted above. Discharge medications included only [id number] pain medications as needed and any home medication she may be taking. Discharge hemoglobin and hematocrit were normal. Procedures: #1. Emergency room consultation #2. Repair of vaginal laceration Patient Condition at Discharge: Stable Plan - Discharge Summary Discharge Rx Participant: No New Discharge Prescriptions: No Action Nitroglycerin Sl Tabs [Nitrostat] 0.4 mg PO Q5M PRN PRN Reason: Chest Pain clonazePAM [KlonoPIN] 2 mg PO HS Fluticasone/Vilanterol [Breo Ellipta 100-25 Mcg Inhaler] 1 puff INHALATION RT-DAILY DULoxetine HCL [Cymbalta] 60 mg PO BID traZODone HCL 300 mg PO HS Varenicline [Chantix Continuing Pack] 1 mg PO BID Albuterol Nebulized [Ventolin Nebulized] 2.5 mg INHALATION RT-QID PRN PRN Reason: Shortness Of Breath Multivit-Min/Iron/Folic/Lutein [Centrum Silver Women Tablet] 1 tab PO DAILY ARIPiprazole [Abilify] 30 mg PO DAILY clonazePAM [KlonoPIN] 1 mg PO QAM Albuterol Inhaler [Ventolin Hfa Inhaler] 2 puff INHALATION RT-Q6H PRN PRN Reason: Shortness Of Breath Discharge Medication List Nitroglycerin Sl Tabs [Nitrostat] 0.4 mg PO Q5M PRN 04/28/14 [History] clonazePAM [KlonoPIN] 2 mg PO HS 03/15/16 [History] Fluticasone/Vilanterol [Breo Ellipta 100-25 Mcg Inhaler] 1 puff INHALATION RT- DAILY 11/19/18 [History] DULoxetine HCL [Cymbalta] 60 mg PO BID 04/15/19 [History] traZODone HCL 300 mg PO HS 04/15/19 [History] Albuterol Nebulized [Ventolin Nebulized] 2.5 mg INHALATION RT-QID PRN 07/28/19 [History] Varenicline [Chantix Continuing Pack] 1 mg PO BID 07/28/19 [History] ARIPiprazole [Abilify] 30 mg PO DAILY 06/11/20 [History] Albuterol Inhaler [Ventolin Hfa Inhaler] 2 puff INHALATION RT-Q6H PRN 06/11/20 [History] Multivit-Min/Iron/Folic/Lutein [Centrum Silver Women Tablet] 1 tab PO DAILY 06/11/20 [History] clonazePAM [KlonoPIN] 1 mg PO QAM 06/11/20 [History] Follow up Appointment(s)/Referral(s): None,Stated [Primary Care Provider] - 1-2 days Judson Walter MD [STAFF PHYSICIAN] - 2 Weeks Discharge Disposition: HOME SELF-CARE
== END 2020-06-11 13:35 | disposition home or self-care (01) ==
LOC: EC 21:41 → 1SOBS 06-11 01:03 → EC 06-11 01:31
PROVIDERS: ADMIT Obstetrics & Gynecology; ATTEND Obstetrics & Gynecology
DX: S31.41XA Laceration without foreign body of vagina and vulva, initial encounter (principal); X58.XXXA Exposure to other specified factors, initial encounter; E78.5 Hyperlipidemia, unspecified; F17.200 Nicotine dependence, unspecified, uncomplicated; F32.9 Major depressive disorder, single episode, unspecified; F41.0 Panic disorder [episodic paroxysmal anxiety]; J45.909 Unspecified asthma, uncomplicated; N93.9 Abnormal uterine and vaginal bleeding, unspecified; Z79.899 Other long term (current) drug therapy; Z80.1 Family history of malignant neoplasm of trachea, bronchus and lung; Z98.1 Arthrodesis status; Z88.1 Allergy status to other antibiotic agents
CPT/HCPCS: 96374; 96375; 99285; 80053; 85025 ×2; 85610; 85730; 74177; 57200; G0378; J2250; J2405; J2001; J3010; J2704; J1170; Q9967

== ENCOUNTER → 2020-11-10 | Outpatient (CLI) | payer MEDICARE, OTHER ==
--- NOTE | 2020-11-14 11:39 | MM ---
Reason for exam: screening (asymptomatic). Last mammogram was performed 2 years and 4 months ago. History: Patient is postmenopausal. Physical Findings: A clinical breast exam by your physician is recommended on an annual basis and results should be correlated with mammographic findings. MG 3D Screening Mammo W/Cad Bilateral CC and MLO view(s) were taken. Prior study comparison: July 08, 2018, bilateral MG 3d screening mammo w/cad. March 02, 2015, right breast MG work up mamm w CAD RT. There are scattered fibroglandular densities. Subareolar calcifications on the left appear increased. Magnification views recommended to assess morphology. ASSESSMENT: Incomplete: need additional imaging evaluation, BI-RAD 0 RECOMMENDATION: Special view mammogram of the left breast. (magnification) If lesion persists on supplemental views, image directed ultrasound is recommended. [facility] will attempt to contact patient to return for supplemental views and ultrasound if indicated.
== END | disposition home or self-care (01) ==
LOC: RADMAMWWP 13:52
PROVIDERS: ATTEND Obstetrics & Gynecology
DX: Z12.31 Encounter for screening mammogram for malignant neoplasm of breast (principal)
CPT/HCPCS: 77063; 77067

== ENCOUNTER → 2020-11-29 | Outpatient (CLI) | payer MEDICARE, OTHER ==
--- NOTE | 2020-11-29 14:54 | MM ---
Reason for exam: additional evaluation requested from abnormal screening. Last mammogram was performed 1 month ago. History: Patient is postmenopausal. Physical Findings: Nurse did not find any significant physical abnormalities on exam. MG 3D Work Up W/Cad LT CC with magnification and LM with magnification view(s) were taken of the left breast. Prior study comparison: November 10, 2020, bilateral MG 3d screening mammo w/cad. July 08, 2018, bilateral MG 3d screening mammo w/cad. There are scattered fibroglandular densities. Finding: There are coarse heterogeneous, grouped/clustered calcifications in the upper quadrant, anterior position of the left breast persists on additional views and does not layer on true lateral view. These results were verbally communicated with the patient and result sheet given to the patient on 11/29/20. ASSESSMENT: Suspicious, BI-RAD 4 RECOMMENDATION: Needle biopsy of the left breast. Patient not canidate of stereotactic because too thin compression. Called Dr. Walter's office with mammographic findings and has scheduled an appointment for the patient for 01/03/21 at 4:[address] Poe. PRELIMINARY REPORT CALLED AND FAXED TO DR. POE ON 11/29/20.
== END | disposition home or self-care (01) ==
LOC: RADMAMWWP 13:46
PROVIDERS: ATTEND Obstetrics & Gynecology
DX: R92.8 Other abnormal and inconclusive findings on diagnostic imaging of breast (principal)
CPT/HCPCS: 77065; G0279; 77061

== ENCOUNTER 2021-01-11 10:16 | Day surgery (SDC) | payer MEDICARE, OTHER ==
[2021-01-09 10:11] VITALS: BMI 19.3
[~2021-01-11 10:16] MED LIST: ACETAMINOPHEN TAB 500 MG TAB PO PRN; ALPRAZolam 0.25 MG TAB PO PRN; DEXAMETHASONE SOD PHOSPHATE 4 MG/ML 1 ML VIAL IV ONE; HEPARIN SODIUM,PORCINE 5,000 UNIT/ML 1 ML VIAL SQ PRN; HYDROmorphone 0.5 MG/0.5 ML SYRINGE IVP PRN; LACTATED RINGERS 1,000 ML IV SCH; ONDANSETRON 4 MG/2 ML VIAL IVP ONE; Pre Op ABX Message 1 EACH MISC MISCELLANE ONE
[2021-01-11] MEDS ORDERED: LIDOCAINE 1% (10MG/ML) FOR IV START INTRADERMA ONE (10:47)
[2021-01-11] MEDS ORDERED: LIDOCAINE 1% INJ 10MG/ML (20 ML MDV) SQ ONE (11:51)
[2021-01-11 12:11] VITALS: TEMP 98.6
[2021-01-11] MEDS ORDERED: ePHEDrine SULFATE/0.9% NACL/PF 50 MG/5 ML SYRINGE IV ONE (12:38)
[2021-01-11] MEDS ORDERED: SUCCINYLCHOLINE CHLORIDE 100 MG/5 ML SYR IV ONE (12:38)
[2021-01-11] MEDS ORDERED: fentaNYL (PF) 50 MCG/ML 2 ML AMP ONE (12:38)
[2021-01-11] MEDS ORDERED: MIDAZOLAM 2 MG/2 ML VIAL ONE (12:38)
[2021-01-11] MEDS ORDERED: PROPOFOL 10 MG/ML 20 ML VIAL IV ONE (12:38)
[2021-01-11] MEDS ORDERED: LIDOCAINE 1% INJ 10MG/ML (20 ML MDV) ONE (12:38)
[2021-01-11] MEDS ORDERED: SODIUM CHLORIDE 0.9% 50 ML with ceFAZolin 1,000 MG IV ONE ×2 (13:01)
[2021-01-11] MEDS ORDERED: BUPIVACAINE (PF) 0.25% 30 ML VIAL SQ ONE (13:06)
[2021-01-11] MEDS ORDERED: NALOXONE 0.4 MG/ML 1 ML VIAL IV PRN (13:35)
--- NOTE | 2021-01-11 13:39 | P.OP ---
Date of Procedure: 01/11/21 Procedure(s) Performed: PREOPERATIVE DIAGNOSIS: Abnormal left mammogram POSTOPERATIVE DIAGNOSIS: Same PROCEDURE: Left Breast wire localization biopsy SURGEON: Yue EBL: Minimal ANESTHESIA: Sedation plus local COMPLICATIONS: None OPERATIVE PROCEDURE: Patient was placed on the operating room table in the sup ine position. The patient's breast was prepped and draped in usual sterile fashion. A curvilinear incision was made along the areola adjacent to the wire entrance site. I followed the wire down into the breast tissue. The breast tissue around the posterior aspect of the wire was fully excised using electrocautery. The specimen was sent for specimen radiogram. The calcifications were present within the specimen. The subcutaneous tissues were inspected. No bleeding was seen. The subcutaneous tissues were closed using 3- 0 Vicryl sutures. The skin was closed using a running 4-0 Monocryl stitch. Skin glue and sterile dressings were applied. DISPOSITION: Stable to recovery room
[2021-01-11 14:12] VITALS: RESP 16
[2021-01-11 14:47] VITALS: BP 136/79; PULSE 93
--- NOTE | 2021-01-11 17:38 | MM ---
EXAMINATION TYPE: MG pre op needle loc LT, MG surgical specimen LT DATE OF EXAM: 01/11/2021 COMPARISON: 11/29/2020 and 11/10/2020 CLINICAL HISTORY: 60-year-old female referred for needle localization and excision of left breast elaine rocalcifications. Patient not amenable to stereotactic biopsy due to breast thickness. TECHNIQUE: Needle localization with wire placement and surgical excision of calcifications in the ant erior 12:00 left breast. FINDINGS: The procedure of needle localization with wire placement and than surgical excision was exp lained to the patient. Benefits, alternatives, and risks were discussed. An informed consent was th en obtained. The shortest pathway for procedure was chosen. Shortest pathway was a superior approach. The overlyi ng skin was prepped and draped in usual sterile fashion. Lidocaine was used as anesthetic into the s kin and subcutaneous tissue up to the level of area of concern. A cm needle was used. It was placed via a CC from above approach under mammographic guidance. Subsequent 90 degrees mammogram show the needle to be in satisfactory position relative to the targeted area. At this point, wire was placed and the needle was withdrawn. The wire was fixed to patient's skin. Images were marked for surgeon. The patient tolerated the procedure well without any immediate complication. The patient was kept in the radiology department for short stay after the procedure and then taken to surgery for surgical e xcision. Targeted calcifications and wire are identified in specimen mammogram. The patient was kep t in hospital for short stay after the procedure and then discharged home in stable condition. IMPRESSION: Successful, uncomplicated needle localization with wire placement and surgical excision of suspicious group of calcifications in the 12:00 anterior left breast, full pathology results to follow. Patien t was not amenable to stereotactic biopsy due to breast thickness.
== END 2021-01-11 14:53 | disposition home or self-care (01) ==
LOC: RADMAMWWP 10:16
PROVIDERS: ATTEND Surgery
DX: N60.12 Diffuse cystic mastopathy of left breast (principal); R92.0 Mammographic microcalcification found on diagnostic imaging of breast; J45.909 Unspecified asthma, uncomplicated; E78.5 Hyperlipidemia, unspecified; M19.90 Unspecified osteoarthritis, unspecified site; F41.9 Anxiety disorder, unspecified; F32.9 Major depressive disorder, single episode, unspecified; F17.210 Nicotine dependence, cigarettes, uncomplicated; Z79.899 Other long term (current) drug therapy; Z79.51 Long term (current) use of inhaled steroids; Z98.890 Other specified postprocedural states; Z97.2 Presence of dental prosthetic device (complete) (partial); Z80.1 Family history of malignant neoplasm of trachea, bronchus and lung
CPT/HCPCS: 19125; 19281; 88307; 76098; J2250; J1644; J1100; J2405; J0690; J2001; J3010; J0330; J2704